=== PATIENT | male | born 1960 | race Caucasian/White ===

== ENCOUNTER 2016-04-06 15:04 | Inpatient (IN) ==
[2016-04-06] MEDS ORDERED: 0.9 % Sodium Chloride 1,000 ML IVC ONE (15:19)
[2016-04-06 15:31] LABS: Bilirubin,Urine Negative (Negative); Blood,Urine Negative (Negative); Clarity,Urine Cloudy (Clear); Color,Urine Yellow (Yellow); Glucose,Urine (UA) Normal (Normal); Ketones,Urine Negative (Negative); Leukocyte Esterase,Urine Negative (Negative); Nitrite,Urine Negative (Negative); Protein,Urine Negative (Neg-Trace); Specific Gravity,Urine 1.026 (1.010-1.025); Urobilinogen,Urine Normal (Normal)
[2016-04-06 15:33] LABS: Bacteria,Urine None Seen per hpf (None-Few); Hyaline Casts,Urine None Seen per lpf (None-Few); RBC,Urine 0-3 per hpf (0-3); Squamous Epithelial Cell,Urine Few per lpf (None-Few); WBC,Urine 0-3 per hpf (0-3)
[2016-04-06 16:01] LABS: Basophils # 0.1 K/mcL (0.0-0.2); Basophils % 0.3 %; Hematocrit 35.7 % (37.5-50.1); Hemoglobin 11.8 g/dL (12.9-16.9); Immature Granulocytes % 0.5 % (0-4); Lymphocytes # 2.6 K/mcL (0.6-4.6); Mean Corpuscular HGB Conc 33.1 g/dL (31.6-35.5); Mean Corpuscular Hemoglobin 29.5 pg (28.0-33.3); Mean Corpuscular Volume 89.3 fL (83.0-100.0); Mean Platelet Volume 12.9 fL (9.4-12.4); Monocytes # 1.1 K/mcL (0.0-1.3); Monocytes % 5.7 %; Neutrophils # 16.1 K/mcL (1.6-8.9); Platelet Count 138 K/mcL (140-400); Red Cell Distribution Width 15.6 % (11.5-14.5); Segmented Neutrophils % 80.5 %
[2016-04-06 16:07] LABS: ABG HCO3 30.1 mEQ/L (21-27); ABG Oxygen Saturation 91 % (95-98); ABG PCO2 36 mmHg (35-45); ABG PH 7.53 pH Units (7.32-7.45); ABG PO2 53 mmHg (85-104); ABG TCO2 31.2 mEq/L (20-26); Blood Gas FiO2 21 %
[2016-04-06 16:10] LABS: INR 1.1; Prothrombin Time 12.1 Seconds (9.4-12.1)
[2016-04-06 16:14] LABS: BUN/Creatinine Ratio 58 (6-26); Blood Urea Nitrogen 48 mg/dL (8-26); Carbon Dioxide 25 mEq/L (19-29); Chloride 106 mEq/L (98-109); Sodium 140 mEq/L (136-145); eGFR For African Americans > 60 (> 60)
[2016-04-06 16:15] LABS: Alanine Aminotransferase 13 Units/L (0-55); Albumin 3.4 g/dL (3.5-5.0); Albumin/Globulin Ratio 1.1 (1.1-2.2); Alkaline Phosphatase 86 Units/L (38-126); Aspartate Amino Transferase 17 Units/L (5-34); Bilirubin,Direct 0.2 mg/dL (0.0-0.5); Bilirubin,Indirect 0.3 mg/dL (0.0-1.2); Bilirubin,Total 0.5 mg/dL (0.2-1.2); Calcium 8.7 mg/dL (8.6-10.8); Globulin 3.1 g/dL (2.4-3.5); Glucose 103 mg/dL (70-99); Magnesium 2.1 mg/dL (1.6-2.6); Osmolality,Calculated 303 (280-300); Phosphorous 3.5 mg/dL (2.3-4.7); Total Protein 6.5 g/dL (6.0-8.3); eGFR For Non-African Americans > 60 (> 60)
--- NOTE | 2016-04-06 17:06 | Emergency Department Note ---
Disposition Clinical Impression: Generalized weakness, Frequent falls, Leukocytosis Laceration of lip Qualifiers: Encounter type: initial encounter Qualified Code(s): S01.511A - Laceration without foreign body of lip, initial encounter Disposition: Admitted As Inpatient [facility] Provider[facility] - Forms: ED Satisfaction Letter Weakness HPI - General Chief complaint: ED Fall Stated complaint: frequent falls Time Seen by Provider: 04/06/16 15:08 Source: patient, EMS Limitations: no limitations Nursing Notes Reviewed: Yes Vital Signs Reviewed: Yes - History of Present Illness HPI Narrative: Is a 55-year-old male who is a [place] [facility] was sent to the [place] for frequent falls last couple days. He states he has had some generalized weakness he fell yesterday unsure the exact time. He states he feels better now he went to the [place] urgent care they diagnosed him with sepsis started IV fluids and antibiotics here at 22,000 white count. Patient has no acute complaints right now he states he is hungry but does feel weak. Onset (ago): day(s) (3) Duration: constant Location: generalized Pain Scale: 0 Improves with: none Worsens with: none Context: trauma/injury Associated symptoms: Denies: chest pain, confusion, dark stools, diaphoresis, nausea/vomiting - Related Data Allergies Allergy/AdvReac Type Severity Reaction Status Date / Time adhesive Allergy See Verified 04/06/16 15:25 Comments perphenazine [From Trilafon] Allergy See Verified 04/06/16 15:25 Comments All systems ED: reviewed and negative except as stated. Constitutional: Reports: weakness. Denies: fever, chills Respiratory: Denies: cough, dyspnea, wheezes Gastrointestinal: Denies: abdominal pain, nausea, vomiting Past Medical History - Past Medical History Source: patient, old records reviewed, nursing notes reviewed Medical history: Reports: hypertension Psychiatric history: Reports: PTSD - Social History Smoking Status: Current every day smoker Smokeless Tobacco Status: No Alcohol use: Reports: none Drug use: Reports: none Physical Exam - General Limitations: no limitations General appearance: alert, in no apparent distress - Head Head exam: atraumatic, normocephalic, normal inspection - Eye Eye exam: Present: normal appearance, PERRL, EOMI - Expanded Eye Exam Pupils: Left: reactive - ENT ENT exam: other (He has a vertical laceration upper lip approximately 7 mm scab formation already.) - Expanded ENT Exam External ear exam: Present: normal external inspection Mouth exam: Present: normal external inspection Teeth exam: Present: normal inspection Throat exam: Present: normal inspection - Neck Neck exam: Present: normal inspection, full ROM, trachea midline - Chest Chest inspection: Present: normal inspection, symmetric chest wall rise - Respiratory Respiratory exam: Present: normal lung sounds bilaterally - Cardiovascular Cardiovascular exam: Present: tachycardia - Abdominal Exam Abdominal exam: Present: soft, Non-Tender. Absent: tenderness, distention, guarding, rebound, rigidity - Extremities Exam Extremities exam: Present: normal inspection, full ROM. Absent: tenderness, pedal edema - Expanded Upper Extremity Exam Shoulder exam: Present: normal inspection, full ROM Arm exam: Present: normal inspection, full ROM Elbow exam: Present: normal inspection, full ROM Forearm/Wrist exam: Present: normal inspection, full ROM Hand exam: Present: normal inspection, full ROM Vascular exam: Normal: capillary refill, radial pulse - Expanded Lower Extremity Exam Hip/Pelvis exam: Present: normal inspection, full ROM Upper leg exam: Present: normal inspection, full ROM Knee exam: Present: normal inspection, full ROM Lower leg exam: Present: normal inspection, full ROM Ankle exam: Present: normal inspection, full ROM Foot/toe exam: Present: normal inspection, full ROM Neurovascular/Tendon exam: Absent: motor deficit, sensory deficit, tendon deficit - Back Exam Back exam: Present: normal inspection, full ROM. Absent: tenderness - Neurological Exam Neurological exam: Present: alert, oriented X3 - Expanded Neurological Exam Patient oriented to: Present: person, place, time Coma Scale Eye Opening: Spontaneous Coma Scale Motor Response: Obeys Commands Coma Scale Verbal Response: Oriented Coma Scale Total: 15 - Psychiatric Psychiatric exam: Present: normal affect, normal mood - Skin Skin exam: Present: warm, dry, intact, normal color Course Vital Signs Temperature 97.7 F 04/06/16 15:12 Pulse Rate 110 04/06/16 15:12 Respiratory Rate 16 04/06/16 15:12 Blood Pressure 105/72 04/06/16 15:12 O2 Sat by Pulse Oximetry 95 04/06/16 15:12 Temperature 97.7 F 04/06/16 15:12 Pulse Rate 108 04/06/16 16:43 Respiratory Rate 16 04/06/16 16:43 Blood Pressure 102/67 04/06/16 16:43 O2 Sat by Pulse Oximetry 98 04/06/16 16:43 Oxygen Delivery Oxygen Delivery Room Air Weakness - Lab Data Result diagrams: 04/06/16 15:52 04/06/16 15:52 Lab Results 04/06/16 04/06/16 04/06/16 Range/Units 15:25 15:52 15:52 WBC 20.0 H (4.3-11.1) K/mcL RBC 4.00 L (4.19-5.50) M/mcL Hgb 11.8 L (12.9-16.9) g/dL Hct 35.7 L (37.5-50.1) % MCV 89.3 (83.0-100.0) fL MCH 29.5 (28.0-33.3) pg MCHC 33.1 (31.6-35.5) g/dL RDW 15.6 H (11.5-14.5) % Plt Count 138 L (140-400) K/mcL MPV 12.9 H (9.4-12.4) fL Immature Gran % 0.5 (0-4) % Seg Neutrophils % 80.5 % Lymphocytes % 13.0 % Monocytes % 5.7 % Eosinophils % 0.0 % Basophils % 0.3 % Neutrophils # 16.1 H (1.6-8.9) K/mcL Lymphocytes # 2.6 (0.6-4.6) K/mcL Monocytes # 1.1 (0.0-1.3) K/mcL Eosinophils # 0.0 (0.0-0.6) K/mcL Basophils # 0.1 (0.0-0.2) K/mcL PT 12.1 (9.4-12.1) Seconds INR 1.1 APTT 24.0 L (26.0-36.0) Seconds ABG pH (7.32-7.45) pH Units ABG pCO2 (35-45) mmHg ABG pO2 (85-104) mmHg ABG HCO3 (21-27) mEQ/L ABG Total CO2 (20-26) mEq/L ABG O2 Saturation (95-98) % ABG Base Excess (-2.0 to 3.0) mEq/L Blood Gas Modality Inspired O2 % Sodium (136-145) mEq/L Potassium (3.5-4.5) mEq/L Chloride (98-109) mEq/L Carbon Dioxide (19-29) mEq/L BUN (8-26) mg/dL Creatinine (0.72-1.25) mg/dL Est GFR ( Amer) (> 60) Est GFR (Non-Af Amer) (> 60) BUN/Creatinine Ratio (6-26) Glucose (70-99) mg/dL Calculated Osmolality (280-300) Lactic Acid (0.5-2.2) mmol/L Calcium (8.6-10.8) mg/dL Phosphorus (2.3-4.7) mg/dL Magnesium (1.6-2.6) mg/dL Total Bilirubin (0.2-1.2) mg/dL Direct Bilirubin (0.0-0.5) mg/dL Indirect Bilirubin (0.0-1.2) mg/dL AST (5-34) Units/L ALT (0-55) Units/L Alkaline Phosphatase (38-126) Units/L Troponin I (0-0.03) ng/mL Serum Total Protein (6.0-8.3) g/dL Albumin (3.5-5.0) g/dL Globulin (2.4-3.5) g/dL Albumin/Globulin Ratio (1.1-2.2) Urine Color Yellow (Yellow) Urine Clarity Cloudy A (Clear) Urine pH 6.0 (5.0-8.0) pH Units Ur Specific Kemp 1.026 H (1.010-1.025) Urine Protein Negative (Neg-Trace) mg/dL Urine Glucose (UA) Normal (Normal) mg/dL Urine Ketones Negative (Negative) mg/dL Urine Blood Negative (Negative) Urine Nitrite Negative (Negative) Urine Bilirubin Negative (Negative) Urine Urobilinogen Normal (Normal) mg/dL Ur Leukocyte Esterase Negative (Negative) Urine Microscopic RBC 0-3 (0-3) per hpf Urine Microscopic WBC 0-3 (0-3) per hpf Ur Squamous Epith Cells Few (None-Few) per lpf Urine Bacteria None Seen (None-Few) per hpf Hyaline Casts None Seen (None-Few) per lpf Ur Culture Indicated? NO (NO) Specimen Rejected 04/06/16 04/06/16 04/06/16 Range/Units 15:52 15:52 15:54 WBC (4.3-11.1) K/mcL RBC (4.19-5.50) M/mcL Hgb (12.9-16.9) g/dL Hct (37.5-50.1) % MCV (83.0-100.0) fL MCH (28.0-33.3) pg MCHC (31.6-35.5) g/dL RDW (11.5-14.5) % Plt Count (140-400) K/mcL MPV (9.4-12.4) fL Immature Gran % (0-4) % Seg Neutrophils % % Lymphocytes % % Monocytes % % Eosinophils % % Basophils % % Neutrophils # (1.6-8.9) K/mcL Lymphocytes # (0.6-4.6) K/mcL Monocytes # (0.0-1.3) K/mcL Eosinophils # (0.0-0.6) K/mcL Basophils # (0.0-0.2) K/mcL PT (9.4-12.1) Seconds INR APTT (26.0-36.0) Seconds ABG pH 7.53 H (7.32-7.45) pH Units ABG pCO2 36 (35-45) mmHg ABG pO2 53 L (85-104) mmHg ABG HCO3 30.1 H (21-27) mEQ/L ABG Total CO2 31.2 H (20-26) mEq/L ABG O2 Saturation 91 L (95-98) % ABG Base Excess 7.0 H (-2.0 to 3.0) mEq/L Blood Gas Modality RA Inspired O2 21 % Sodium 140 (136-145) mEq/L Potassium 4.0 (3.5-4.5) mEq/L Chloride 106 (98-109) mEq/L Carbon Dioxide 25 (19-29) mEq/L BUN 48 H (8-26) mg/dL Creatinine 0.83 (0.72-1.25) mg/dL Est GFR ( Amer) > 60 (> 60) Est GFR (Non-Af Amer) > 60 (> 60) BUN/Creatinine Ratio 58 H (6-26) Glucose 103 H (70-99) mg/dL Calculated Osmolality 303 H (280-300) Lactic Acid (0.5-2.2) mmol/L Calcium 8.7 (8.6-10.8) mg/dL Phosphorus 3.5 (2.3-4.7) mg/dL Magnesium 2.1 (1.6-2.6) mg/dL Total Bilirubin 0.5 (0.2-1.2) mg/dL Direct Bilirubin 0.2 (0.0-0.5) mg/dL Indirect Bilirubin 0.3 (0.0-1.2) mg/dL AST 17 (5-34) Units/L ALT 13 (0-55) Units/L Alkaline Phosphatase 86 (38-126) Units/L Troponin I 0.01 (0-0.03) ng/mL Serum Total Protein 6.5 (6.0-8.3) g/dL Albumin 3.4 L (3.5-5.0) g/dL Globulin 3.1 (2.4-3.5) g/dL Albumin/Globulin Ratio 1.1 (1.1-2.2) Urine Color (Yellow) Urine Clarity (Clear) Urine pH (5.0-8.0) pH Units Ur Specific Kemp (1.010-1.025) Urine Protein (Neg-Trace) mg/dL Urine Glucose (UA) (Normal) mg/dL Urine Ketones (Negative) mg/dL Urine Blood (Negative) Urine Nitrite (Negative) Urine Bilirubin (Negative) Urine Urobilinogen (Normal) mg/dL Ur Leukocyte Esterase (Negative) Urine Microscopic RBC (0-3) per hpf Urine Microscopic WBC (0-3) per hpf Ur Squamous Epith Cells (None-Few) per lpf Urine Bacteria (None-Few) per hpf Hyaline Casts (None-Few) per lpf Ur Culture Indicated? (NO) Specimen Rejected 04/06/16 04/06/16 Range/Units 16:18 16:27 WBC (4.3-11.1) K/mcL RBC (4.19-5.50) M/mcL Hgb (12.9-16.9) g/dL Hct (37.5-50.1) % MCV (83.0-100.0) fL MCH (28.0-33.3) pg MCHC (31.6-35.5) g/dL RDW (11.5-14.5) % Plt Count (140-400) K/mcL MPV (9.4-12.4) fL Immature Gran % (0-4) % Seg Neutrophils % % Lymphocytes % % Monocytes % % Eosinophils % % Basophils % % Neutrophils # (1.6-8.9) K/mcL Lymphocytes # (0.6-4.6) K/mcL Monocytes # (0.0-1.3) K/mcL Eosinophils # (0.0-0.6) K/mcL Basophils # (0.0-0.2) K/mcL PT (9.4-12.1) Seconds INR APTT (26.0-36.0) Seconds ABG pH (7.32-7.45) pH Units ABG pCO2 (35-45) mmHg ABG pO2 (85-104) mmHg ABG HCO3 (21-27) mEQ/L ABG Total CO2 (20-26) mEq/L ABG O2 Saturation (95-98) % ABG Base Excess (-2.0 to 3.0) mEq/L Blood Gas Modality Inspired O2 % Sodium (136-145) mEq/L Potassium (3.5-4.5) mEq/L Chloride (98-109) mEq/L Carbon Dioxide (19-29) mEq/L BUN (8-26) mg/dL Creatinine (0.72-1.25) mg/dL Est GFR ( Amer) (> 60) Est GFR (Non-Af Amer) (> 60) BUN/Creatinine Ratio (6-26) Glucose (70-99) mg/dL Calculated Osmolality (280-300) Lactic Acid 1.3 (0.5-2.2) mmol/L Calcium (8.6-10.8) mg/dL Phosphorus (2.3-4.7) mg/dL Magnesium (1.6-2.6) mg/dL Total Bilirubin (0.2-1.2) mg/dL Direct Bilirubin (0.0-0.5) mg/dL Indirect Bilirubin (0.0-1.2) mg/dL AST (5-34) Units/L ALT (0-55) Units/L Alkaline Phosphatase (38-126) Units/L Troponin I (0-0.03) ng/mL Serum Total Protein (6.0-8.3) g/dL Albumin (3.5-5.0) g/dL Globulin (2.4-3.5) g/dL Albumin/Globulin Ratio (1.1-2.2) Urine Color (Yellow) Urine Clarity (Clear) Urine pH (5.0-8.0) pH Units Ur Specific Kemp (1.010-1.025) Urine Protein (Neg-Trace) mg/dL Urine Glucose (UA) (Normal) mg/dL Urine Ketones (Negative) mg/dL Urine Blood (Negative) Urine Nitrite (Negative) Urine Bilirubin (Negative) Urine Urobilinogen (Normal) mg/dL Ur Leukocyte Esterase (Negative) Urine Microscopic RBC (0-3) per hpf Urine Microscopic WBC (0-3) per hpf Ur Squamous Epith Cells (None-Few) per lpf Urine Bacteria (None-Few) per hpf Hyaline Casts (None-Few) per lpf Ur Culture Indicated? (NO) Specimen Rejected Hemolyzed
[2016-04-06] MEDS ORDERED: Naloxone 0.4 MG/ML INJ IVP PRN (19:11)
[2016-04-06] MEDS ORDERED: 0.9 % Sodium Chloride 1,000 ML IVC SCH (19:15)
--- NOTE | 2016-04-06 20:33 | Internal Med History&Physical ---
<Sharon Linn M - Last Filed: 04/06/16 22:11> Date of Encounter: 04/06/16 Time of Encounter: 20:21 Assessment and Plan (1) Syncope Current visit: Yes Status: Acute Patient reports "blacking out" several times and falling. CT head from [place] negative for acute abnormality. BUN is elevated and patient appears dehydrated. Suspect orthostatic hypotension resulting in syncope, but will evaluate for other possibilities. Orthostatic vital signs continuous buckram sewer echocardiogram bilateral carotid dopplers. Qualifiers: Syncope type: unspecified Qualified Code(s): R55 - Syncope and collapse (2) Tachycardia Current visit: Yes Status: Acute EKG showed Sinus Tachycardia with HR of 108. WBC count elevated to 20.0. Patient is afebrile, but coughing. Tachycardia cause could be related to infection versus dehydration. Patient is clinically dehydrated with dry mucous membranes, BUN of 48. Bolus given in ED. IV fluids 0.9NS at 100 Regular diet Rocephin 1g IVPB daily for suspected URI. (3) Frequent falls Current visit: Yes Status: Acute Patient with multiple recent falls, reporting "blacking out". Working up for syncope. Fall precautions PT consult (4) Dehydration Current visit: Yes Status: Acute Patient clinically dehydrated with BUN of 48, dry mucous membranes. Fluid bolus given in ED. Continuous IV fluids with 0.9NS at 100mL/hr Regular diet. Recheck chemistry in the morning. (5) Chronic obstructive pulmonary disease Current visit: Yes Status: Acute Patient with reported history of COPD. Productive cough. CXR shows no acute cardiopulmonary disease. Satting 95% on room air. No inhalers on home med list. Duoneb treatments QID Qualifiers: COPD type: unspecified COPD Qualified Code(s): J44.9 - Chronic obstructive pulmonary disease, unspecified (6) DVT prophylaxis Current visit: Yes Status: Acute Ambulate with assistance anti-embolic stockings Lovenox 40mg SQ daily Internal Medicine - H&P: HPI Chief complaint: frequent falls Admitted From: Emergency Dept Plans for Post Hospital Care: Home History of present illness: Mr. Taylor is a 55 year old male with HTN, COPD, schizophrenia, and GERD who was sent to the ED from the [place] with reports of frequent falls, as well as elevated WBC count to 22, and [facility]. Patient is a poor historian, but reports he "blacked out" several times in the last few days and fell as a result a few times. He has a scabbed laceration on his left upper lip, reportedly from one of the falls. He reports he has been coughing, but is not sure how long, and does not report coughing anything up. He denies any chest pain, palpitations, headaches, numbness or tingling. [facility] CXR which showed no evidence of acute cardiopulmonary disease. He had a head CT, which showed no acute intracranial abnormality, suspected mild microvascular ischemic change remains present within the supratentorial white matter. Suspected retention cysts are partially visualized within the left maxillary sinus, there is trace mucosal thickening within some of the right anterior ethmoid air cells, the left mastoid air cells remain opacified. Evaluation in the ED revealed WBC count of 20.0, negative troponin of 0.01, lactic acid of 1.3, EKG showed sinus tachycardia. ABG revealed chronic respiratory alkalosis. On exam, he is alert and oriented X 3, answers questions appropriately at times, but is a poor historian and occasionally has inappropriate answers to questions. His lungs are clear to auscultation, his heart has regular, tachycardic rhythm. Past Med Surg Social Fam HX - Past Medical History Medical history: COPD, hypertension Psychiatric history: PTSD, schizophrenia - Past Surgical History Surgical History: other (bladder surgery, tonsillectomy) - Social History Smoking Status: Current every day smoker Smokeless Tobacco Status: No Alcohol use: none Drug use: none - Family History Mother Living Status: Age at : 92 Internal Medicine - H&P: Meds Benztropine Mesylate 1 mg PO BID 04/06/16 [History] CloZAPine [Clozaril] 100 mg PO TID 04/06/16 [History] Haloperidol Decanoate 100 mg IM 04/06/16 [History] Lactulose [Lactulose] BID 04/06/16 [History] Magnesium Citrate PRN 04/06/16 [History] Melatonin [Melatin] 3 mg PO HS 04/06/16 [History] Metoprolol Tartrate 25 mg PO BID 04/06/16 [History] Multivitamin ONCE 04/06/16 [History] Omeprazole 20 mg PO BID 04/06/16 [History] Potassium Chloride [Klor-Con 10] 10 meq PO ONCE 04/06/16 [History] Sennosides/Docusate Sodium [Senna-S Tablet] 1 each PO BID 04/06/16 [History] Allergies adhesive Allergy (Verified 04/06/16 15:25) See Comments perphenazine [From Trilafon] Allergy (Verified 04/06/16 15:25) See Comments All Systems PM: A 10-system review of systems was performed and is negative for pertinent findings except as documented above in the HPI. - Constitutional Constitutional: falls, no chills, no fever(s), no night sweats - EENT Eyes: no change in vision, no discharge, no pain, no photophobia Ears: no ear discharge, no ear pain, no tinnitus Nose, mouth and throat: no dysphagia, no nasal discharge, no neck pain, no sore throat - Cardiovascular Cardiovascular ROS IM: syncope, no chest pain, no diaphoresis, no dyspnea, no lightheadedness, no palpitations - Respiratory Respiratory: cough, no dyspnea, no wheezing, no excessive phlegm production - Gastrointestinal Gastrointestinal: no abdominal pain, no diarrhea, no hematemesis, no hematochezia, no melena, no nausea, no vomiting - Musculoskeletal Musculoskeletal ROS IM: no numbness, no tingling - Integumentary Integumentary IM: no rash, no unusual bruising - Neurological Neurological ROS: no focal weakness, no numbness, no tingling, no tremor(s) - Hematologic/Lymphatic Hematologic/Lymphatic: no easy bruising - Constitutional Vitals: Temp Pulse Resp BP Pulse Ox 97.7 F 108 16 108/74 91 L 04/06/16 19:21 04/06/16 19:21 04/06/16 19:21 04/06/16 19:21 04/06/16 19:21 General appearance: Present: A&O X 3 Exam: poor historian and answers questions inappropriately at times. - Head Head exam: Present: normocephalic Additional comments: scabbed laceration on left upper lip - Eye Eye exam: Present: PERRL, conjuntiva pink, sclera anicteric Pupils: Present: PERRL - Neck Neck exam general surgery: Present: supple, trachea midline. Absent: lymphadenopathy - Respiratory Respiratory exam: Present: CTAB. Absent: accessory muscle use, rales, rhonchi, wheezes - Cardiovascular Cardiovascular exam: Present: RRR, +S1, +S2, tachycardia. Absent: diastolic murmur, gallop, rubs, systolic murmur - GI/Abdominal GI/Abdominal exam: Present: normal bowel sounds, soft, no peritoneal signs. Absent: distended, tenderness - Extremities Exam Extremities exam: Present: warm, radial pulses palpable and symetrical. Absent : calf tenderness, cyanotic, pedal edema - Neurological Exam Neurological exam: Present: CN II-XII intact, oriented X3, no focal deficits. Absent: pronater drift, facial droop, speech deficit - Skin Skin exam: Present: dry, intact Internal Med - H&P Results - Labs CBC & Chem 7: 04/06/16 15:52 04/06/16 15:52 Labs: All Lab Results (24 Hours) 04/06/16 04/06/16 04/06/16 Range/Units 15:25 15:52 15:52 WBC 20.0 H (4.3-11.1) K/mcL RBC 4.00 L (4.19-5.50) M/mcL Hgb 11.8 L (12.9-16.9) g/dL Hct 35.7 L (37.5-50.1) % MCV 89.3 (83.0-100.0) fL MCH 29.5 (28.0-33.3) pg MCHC 33.1 (31.6-35.5) g/dL RDW 15.6 H (11.5-14.5) % Plt Count 138 L (140-400) K/mcL MPV 12.9 H (9.4-12.4) fL Immature Gran % 0.5 (0-4) % Seg Neutrophils % 80.5 % Lymphocytes % 13.0 % Monocytes % 5.7 % Eosinophils % 0.0 % Basophils % 0.3 % Neutrophils # 16.1 H (1.6-8.9) K/mcL Lymphocytes # 2.6 (0.6-4.6) K/mcL Monocytes # 1.1 (0.0-1.3) K/mcL Eosinophils # 0.0 (0.0-0.6) K/mcL Basophils # 0.1 (0.0-0.2) K/mcL PT 12.1 (9.4-12.1) Seconds INR 1.1 APTT 24.0 L (26.0-36.0) Seconds ABG pH (7.32-7.45) pH Units ABG pCO2 (35-45) mmHg ABG pO2 (85-104) mmHg ABG HCO3 (21-27) mEQ/L ABG Total CO2 (20-26) mEq/L ABG O2 Saturation (95-98) % ABG Base Excess (-2.0 to 3.0) mEq/L Blood Gas Modality Inspired O2 % Sodium (136-145) mEq/L Potassium (3.5-4.5) mEq/L Chloride (98-109) mEq/L Carbon Dioxide (19-29) mEq/L BUN (8-26) mg/dL Creatinine (0.72-1.25) mg/dL Est GFR ( Amer) (> 60) Est GFR (Non-Af Amer) (> 60) BUN/Creatinine Ratio (6-26) Glucose (70-99) mg/dL Calculated Osmolality (280-300) Lactic Acid (0.5-2.2) mmol/L Calcium (8.6-10.8) mg/dL Phosphorus (2.3-4.7) mg/dL Magnesium (1.6-2.6) mg/dL Total Bilirubin (0.2-1.2) mg/dL Direct Bilirubin (0.0-0.5) mg/dL Indirect Bilirubin (0.0-1.2) mg/dL AST (5-34) Units/L ALT (0-55) Units/L Alkaline Phosphatase (38-126) Units/L Troponin I (0-0.03) ng/mL Serum Total Protein (6.0-8.3) g/dL Albumin (3.5-5.0) g/dL Globulin (2.4-3.5) g/dL Albumin/Globulin Ratio (1.1-2.2) Urine Color Yellow (Yellow) Urine Clarity Cloudy A (Clear) Urine pH 6.0 (5.0-8.0) pH Units Ur Specific [place] 1.026 H (1.010-1.025) Urine Protein Negative (Neg-Trace) mg/dL Urine Glucose (UA) Normal (Normal) mg/dL Urine Ketones Negative (Negative) mg/dL Urine Blood Negative (Negative) Urine Nitrite Negative (Negative) Urine Bilirubin Negative (Negative) Urine Urobilinogen Normal (Normal) mg/dL Ur Leukocyte Esterase Negative (Negative) Urine Microscopic RBC 0-3 (0-3) per hpf Urine Microscopic WBC 0-3 (0-3) per hpf Ur Squamous Epith Cells Few (None-Few) per lpf Urine Bacteria None Seen (None-Few) per hpf Hyaline Casts None Seen (None-Few) per lpf Ur Culture Indicated? NO (NO) Specimen Rejected 04/06/16 04/06/16 04/06/16 Range/Units 15:52 15:52 15:54 WBC (4.3-11.1) K/mcL RBC (4.19-5.50) M/mcL Hgb (12.9-16.9) g/dL Hct (37.5-50.1) % MCV (83.0-100.0) fL MCH (28.0-33.3) pg MCHC (31.6-35.5) g/dL RDW (11.5-14.5) % Plt Count (140-400) K/mcL MPV (9.4-12.4) fL Immature Gran % (0-4) % Seg Neutrophils % % Lymphocytes % % Monocytes % % Eosinophils % % Basophils % % Neutrophils # (1.6-8.9) K/mcL Lymphocytes # (0.6-4.6) K/mcL Monocytes # (0.0-1.3) K/mcL Eosinophils # (0.0-0.6) K/mcL Basophils # (0.0-0.2) K/mcL PT (9.4-12.1) Seconds INR APTT (26.0-36.0) Seconds ABG pH 7.53 H (7.32-7.45) pH Units ABG pCO2 36 (35-45) mmHg ABG pO2 53 L (85-104) mmHg ABG HCO3 30.1 H (21-27) mEQ/L ABG Total CO2 31.2 H (20-26) mEq/L ABG O2 Saturation 91 L (95-98) % ABG Base Excess 7.0 H (-2.0 to 3.0) mEq/L Blood Gas Modality RA Inspired O2 21 % Sodium 140 (136-145) mEq/L Potassium 4.0 (3.5-4.5) mEq/L Chloride 106 (98-109) mEq/L Carbon Dioxide 25 (19-29) mEq/L BUN 48 H (8-26) mg/dL Creatinine 0.83 (0.72-1.25) mg/dL Est GFR ( Amer) > 60 (> 60) Est GFR (Non-Af Amer) > 60 (> 60) BUN/Creatinine Ratio 58 H (6-26) Glucose 103 H (70-99) mg/dL Calculated Osmolality 303 H (280-300) Lactic Acid (0.5-2.2) mmol/L Calcium 8.7 (8.6-10.8) mg/dL Phosphorus 3.5 (2.3-4.7) mg/dL Magnesium 2.1 (1.6-2.6) mg/dL Total Bilirubin 0.5 (0.2-1.2) mg/dL Direct Bilirubin 0.2 (0.0-0.5) mg/dL Indirect Bilirubin 0.3 (0.0-1.2) mg/dL AST 17 (5-34) Units/L ALT 13 (0-55) Units/L Alkaline Phosphatase 86 (38-126) Units/L Troponin I 0.01 (0-0.03) ng/mL Serum Total Protein 6.5 (6.0-8.3) g/dL Albumin 3.4 L (3.5-5.0) g/dL Globulin 3.1 (2.4-3.5) g/dL Albumin/Globulin Ratio 1.1 (1.1-2.2) Urine Color (Yellow) Urine Clarity (Clear) Urine pH (5.0-8.0) pH Units Ur Specific [place] (1.010-1.025) Urine Protein (Neg-Trace) mg/dL Urine Glucose (UA) (Normal) mg/dL Urine Ketones (Negative) mg/dL Urine Blood (Negative) Urine Nitrite (Negative) Urine Bilirubin (Negative) Urine Urobilinogen (Normal) mg/dL Ur Leukocyte Esterase (Negative) Urine Microscopic RBC (0-3) per hpf Urine Microscopic WBC (0-3) per hpf Ur Squamous Epith Cells (None-Few) per lpf Urine Bacteria (None-Few) per hpf Hyaline Casts (None-Few) per lpf Ur Culture Indicated? (NO) Specimen Rejected 04/06/16 04/06/16 04/06/16 Range/Units 16:18 16:27 18:14 WBC (4.3-11.1) K/mcL RBC (4.19-5.50) M/mcL Hgb (12.9-16.9) g/dL Hct (37.5-50.1) % MCV (83.0-100.0) fL MCH (28.0-33.3) pg MCHC (31.6-35.5) g/dL RDW (11.5-14.5) % Plt Count (140-400) K/mcL MPV (9.4-12.4) fL Immature Gran % (0-4) % Seg Neutrophils % % Lymphocytes % % Monocytes % % Eosinophils % % Basophils % % Neutrophils # (1.6-8.9) K/mcL Lymphocytes # (0.6-4.6) K/mcL Monocytes # (0.0-1.3) K/mcL Eosinophils # (0.0-0.6) K/mcL Basophils # (0.0-0.2) K/mcL PT (9.4-12.1) Seconds INR APTT (26.0-36.0) Seconds ABG pH (7.32-7.45) pH Units ABG pCO2 (35-45) mmHg ABG pO2 (85-104) mmHg ABG HCO3 (21-27) mEQ/L ABG Total CO2 (20-26) mEq/L ABG O2 Saturation (95-98) % ABG Base Excess (-2.0 to 3.0) mEq/L Blood Gas Modality Inspired O2 % Sodium (136-145) mEq/L Potassium (3.5-4.5) mEq/L Chloride (98-109) mEq/L Carbon Dioxide (19-29) mEq/L BUN (8-26) mg/dL Creatinine (0.72-1.25) mg/dL Est GFR ( Amer) (> 60) Est GFR (Non-Af Amer) (> 60) BUN/Creatinine Ratio (6-26) Glucose (70-99) mg/dL Calculated Osmolality (280-300) Lactic Acid 1.3 1.4 (0.5-2.2) mmol/L Calcium (8.6-10.8) mg/dL Phosphorus (2.3-4.7) mg/dL Magnesium (1.6-2.6) mg/dL Total Bilirubin (0.2-1.2) mg/dL Direct Bilirubin (0.0-0.5) mg/dL Indirect Bilirubin (0.0-1.2) mg/dL AST (5-34) Units/L ALT (0-55) Units/L Alkaline Phosphatase (38-126) Units/L Troponin I (0-0.03) ng/mL Serum Total Protein (6.0-8.3) g/dL Albumin (3.5-5.0) g/dL Globulin (2.4-3.5) g/dL Albumin/Globulin Ratio (1.1-2.2) Urine Color (Yellow) Urine Clarity (Clear) Urine pH (5.0-8.0) pH Units Ur Specific [place] (1.010-1.025) Urine Protein (Neg-Trace) mg/dL Urine Glucose (UA) (Normal) mg/dL Urine Ketones (Negative) mg/dL Urine Blood (Negative) Urine Nitrite (Negative) Urine Bilirubin (Negative) Urine Urobilinogen (Normal) mg/dL Ur Leukocyte Esterase (Negative) Urine Microscopic RBC (0-3) per hpf Urine Microscopic WBC (0-3) per hpf Ur Squamous Epith Cells (None-Few) per lpf Urine Bacteria (None-Few) per hpf Hyaline Casts (None-Few) per lpf Ur Culture Indicated? (NO) Specimen Rejected Hemolyzed <Ruslan Simpson R - Last Filed: 04/07/16 01:31> Date of Encounter: 04/06/16 Internal Medicine - H&P: HPI History of present illness: Mr. Taylor is a 55 year old male All Systems PM: A 10-system review of systems was performed and is negative for pertinent findings except as documented above in the HPI. - Constitutional Vitals: Temp Pulse Resp BP Pulse Ox 98.2 F 81 16 92/59 96 04/06/16 22:40 04/06/16 22:40 04/06/16 22:40 04/06/16 22:40 04/06/16 22:40 Internal Med - H&P Results - Labs CBC & Chem 7: 04/06/16 15:52 04/06/16 15:52 - Attending Attestation I examined this patient and my medical decision-making was reviewed with the [facility] TECHNICIAN/PA/Advanced Practice Nurse/Resident Physician. I agree with the documented findings, disposition and treatment plan as described except to the extent set forth below. 55 year old male with HTN, COPD, schizophrenia, and GERD who was sent to the ED from the [place] with reports of frequent falls and was noted to have WBC count of 22. Review of the [place] records shows a CXR which showed no evidence of acute cardiopulmonary disease. CT head reported no acute intracranial abnormality, suspected mild microvascular ischemic change remains present within the supratentorial white matter. Suspected retention cysts are partially visualized within the left maxillary sinus, there is trace mucosal thickening within some of the right anterior ethmoid air cells, the left mastoid air cells remain opacified. He was empirically given ceftriaxone in the [place] hospital. In the emergency department he was noted to have WBC of 20. Tachycardic with heart rate in the low 100s. No obvious source of infection identified. Lactate is negative. O/E: Alert and oriented. Lungs clear to auscultation. EKG sinus tachycardia. A/P: Volume depletion: Possibly due to poor oral intake. BUN is significantly elevated. Will treat with IV fluids.Sinus tachycardia is possibly related to volume depletion. Syncope: Due to Orthostatic hypotension versus cardiogenic. Check orthostatic vitals. Treat with IV fluids. Will obtain echo. Telemetry. Leucocytosis: No apparent source for infection at this time. Could be stress response. Steroids are not listed in his home meds. Monitor WBC count.
[2016-04-06] MEDS: Melatonin 3 MG TABLET PO SCH (22:20)
[2016-04-06] MEDS: cloZAPine 100 MG TABLET PO SCH (22:20)
[2016-04-06] MEDS: Sennosides/Docusate Sodium TABLET PO SCH (22:20)
[2016-04-06] MEDS: Ipratropium/Albuterol Neb 3 ML IH SCH (22:40)
--- NOTE | 2016-04-07 01:37 | Event Note ---
Date of Encounter: 04/07/16 Time of Encounter: 00:10 I was paged that the pt had heart rate in the 150s to 160s. He seemed to have atrial flutter/fibrillation with HR of 140-150 on the telemetry. Pt felt some fluttering in the chest. When we obtain the EKG immediately, he was in sinus tachycardia. A/P: Paroxysmal A flutter / A fib: will check TSH. continue IV fluids. Echocardiogram. Consider cardiology consultation.
[2016-04-07] MEDS: 0.9 % Sodium Chloride 1,000 ML IVC SCH ×3 (02:14→15:26)
[2016-04-07] MEDS: Ipratropium/Albuterol Neb 3 ML IH SCH ×4 (03:15→22:40)
[2016-04-07 05:10] LABS: Basophils # 0.1 K/mcL (0.0-0.2); Basophils % 0.3 %; Hematocrit 28.3 % (37.5-50.1); Immature Granulocytes % 0.4 % (0-4); Lymphocytes # 3.1 K/mcL (0.6-4.6); Lymphocytes % 18.4 %; Mean Corpuscular HGB Conc 32.9 g/dL (31.6-35.5); Mean Corpuscular Hemoglobin 29.7 pg (28.0-33.3); Mean Corpuscular Volume 90.4 fL (83.0-100.0); Mean Platelet Volume 12.6 fL (9.4-12.4); Monocytes # 1.2 K/mcL (0.0-1.3); Monocytes % 7.2 %; Neutrophils # 12.6 K/mcL (1.6-8.9); Platelet Count 125 K/mcL (140-400); Red Blood Count 3.13 M/mcL (4.19-5.50); Red Cell Distribution Width 15.6 % (11.5-14.5); Segmented Neutrophils % 73.7 %
[2016-04-07 05:16] LABS: Hemoglobin 9.3 g/dL (12.9-16.9)
[2016-04-07 05:25] LABS: BUN/Creatinine Ratio 51 (6-26); Calcium 7.7 mg/dL (8.6-10.8); Carbon Dioxide 27 mEq/L (19-29); Chloride 111 mEq/L (98-109); Glucose 107 mg/dL (70-99); Osmolality,Calculated 302 (280-300); Sodium 142 mEq/L (136-145); eGFR For African Americans > 60 (> 60); eGFR For Non-African Americans > 60 (> 60)
[2016-04-07 05:29] LABS: Blood Urea Nitrogen 34 mg/dL (8-26)
[2016-04-07] MEDS: *HR* Enoxaparin 40 MG/0.4 ML SYRINGE SQ SCH (06:02)
[2016-04-07] MEDS: Sennosides/Docusate Sodium TABLET PO SCH ×2 (08:48→21:45)
[2016-04-07] MEDS: cloZAPine 100 MG TABLET PO SCH ×3 (09:16→21:45)
--- NOTE | 2016-04-07 10:23 | Event Note ---
Date of Encounter: 04/07/16 Time of Encounter: 10:21 - Cardiology Event Note Telemetry and EKGs reviewed with Dr. Vasques. Cardiology was consulted for A-Fib. On review of telemetry overnight and EKGs that are available, there is no evidence of A-Fib. Appears to be sinus tach with ectopy and occasional episodes of Atrial tach. Discussed with hospitalist, will cancel consult, but please reconsult if necessary.
--- NOTE | 2016-04-07 15:37 | Internal Med Progress Note ---
Date of Encounter: 04/07/16 Time of Encounter: 09:00 - Assessment and plan (1) Syncope Current Visit: Yes Status: Acute Assessment and plan: Etiology is undetermined. Patient has signs of dehydration. Suspect hypovolemic and orthostatic hypotension. Will follow echo, duplex carotid. Place patient on closely cardiac monitoring. Qualifiers: Syncope type: vasovagal syncope Qualified Code(s): R55 - Syncope and collapse (2) Chronic obstructive pulmonary disease Current Visit: Yes Status: Acute Assessment and plan: Stable continue home medication Qualifiers: COPD type: unspecified COPD Qualified Code(s): J44.9 - Chronic obstructive pulmonary disease, unspecified (3) DVT prophylaxis Current Visit: Yes Status: Acute Assessment and plan: Lovenox SC (4) Dehydration Current Visit: Yes Status: Acute Assessment and plan: Continue IV fluid, follow-up chemistry. (5) Frequent falls Current Visit: Yes Status: Acute Assessment and plan: Will check a vitamin B12 and folic acid level. Physical therapy. (6) Leukocytosis Current Visit: Yes Status: Acute Assessment and plan: Possibly reactive. Continue hydration and Follow-up CBC Qualifiers: Leukocytosis type: unspecified Qualified Code(s): D72.829 - Elevated white blood cell count, unspecified (7) Tachycardia Current Visit: Yes Status: Acute Assessment and plan: Patient has transient SVT reviewed by cardiology. Possibly due to hypovolemic status. Will continue hydration patient and closely monitor him. - Time Spent With Patient 25 - 35 minutes - Subjective Interval history: Patient is a 55-year-old male admitted for syncope. His past medical history is significant for hypertension, COPD, schizophrenia. I saw and examined the patient. He is awake, alert, however he cannot communicate appropriately. No fever, vitals are stable, patient denies dizziness or lightheaded. Will continue IV fluid to hydrate patient, follow-up syncope workup results. Keep the patient in telemetry and put him on cardiac monitoring. - Constitutional Vitals: Temp Pulse Resp BP Pulse Ox 98.0 F 94 16 98/63 97 04/07/16 14:40 04/07/16 14:40 04/07/16 14:40 04/07/16 14:40 04/07/16 14:40 General appearance: Present: A&O X 2, A&O X 3, no acute distress - Head Head exam: Present: atraumatic, normocephalic - Eye Eye exam: Present: PERRL, conjuntiva pink, sclera anicteric Pupils: Present: PERRL - Neck Neck exam general surgery: Present: supple, trachea midline. Absent: lymphadenopathy - Respiratory Respiratory exam: Present: CTAB. Absent: accessory muscle use, rales, rhonchi, wheezes - Cardiovascular Cardiovascular exam: Present: RRR, +S1, +S2. Absent: diastolic murmur, gallop, rubs, systolic murmur - GI/Abdominal GI/Abdominal exam: Present: normal bowel sounds, soft, no peritoneal signs. Absent: distended, tenderness - Extremities Exam Extremities exam: Present: warm, radial pulses palpable and symetrical. Absent : calf tenderness, cyanotic, pedal edema - Neurological Exam Neurological exam: Present: CN II-XII intact, oriented X3, no focal deficits. Absent: pronater drift, facial droop, speech deficit - Skin Skin exam: Present: dry, intact Internal Medicine: Result - Labs CBC & Chem 7: 04/07/16 04:34 04/07/16 04:34 Labs: Short CBC 04/07/16 Range/Units 04:34 WBC 17.0 H (4.3-11.1) K/mcL Hgb 9.3 L D (12.9-16.9) g/dL Hct 28.3 L (37.5-50.1) % Plt Count 125 L (140-400) K/mcL Neutrophils # 12.6 H (1.6-8.9) K/mcL BMP 04/07/16 04:34 Sodium 142 Potassium 4.0 Chloride 111 H Carbon Dioxide 27 BUN 34 H D Creatinine 0.67 L Glucose 107 H Calcium 7.7 L Cardiac Enzymes 04/07/16 Range/Units 04:34 Troponin I 0.01 (0-0.03) ng/mL - ABG Interpretation ABG results: ABG ABG pH 7.53 pH Units (7.32-7.45) H 04/06/16 15:54 ABG pCO2 36 mmHg (35-45) 04/06/16 15:54 ABG pO2 53 mmHg (85-104) L 04/06/16 15:54 ABG O2 Saturation 91 % (95-98) L 04/06/16 15:54 PT/INR, D-dimer PT 12.1 Seconds (9.4-12.1) 04/06/16 15:52 Consult Discharge Plan - Plan [facility]Primary Care Provider[facility] -
--- NOTE | 2016-04-07 15:40 | ECHO - Doppler Report ---
Echocardiogram Name: Kyler Taylor Date of Study: 04/07/2016 Date: 1960 Ht: 72.0 in Medical Record#: [id number] Age: 55 Wt: 154.0 lb Gender: Male BSA: 1.91 Order #: [id number] Location: [facility] Room #: [facility] Reading Physician: David Maldonado DO, FACTyler, NANO, BHUPINDER Tram Operator: Cassy Mike, [place], RVT Ordering Physician: Sharon Linn CNP Primary Physician: [facility] Indications: Syncope Impressions: Technically sub-optimal due to poor echocardiographic windows. LVEF 65%. Normal LV chamber size, wall thickness and function. Mild left ventricular diastolic dysfunction. Normal right ventricular structure and function. Unable to estimate RVSP due to lack of TR jet. No obvious significant valvular dysfunction. Left Ventricular Wall Motion: Rest Echo Findings All wall segments showed normal motion. Findings: Study Quality * Technically sub-optimal due to poor echocardiographic windows. ECG Findings * Normal sinus rhythm. Left Ventricle * LVEF 65%. * Normal LV chamber size, wall thickness and function. * Mild left ventricular diastolic dysfunction. Right Ventricle * Normal right ventricular structure and function. Left Atrium * Mildly dilated left atrium. Right Atrium * Normal right atrial size. Interatrial Septum * Lipomatous interatrial septum. * No evidence of PFO by color Doppler. Aortic Valve * Aortic valve not well visualized. * No aortic regurgitation. * No aortic stenosis. Mitral Valve * Normal mitral valve structure and function. * No mitral regurgitation. * No mitral stenosis. Tricuspid Valve * Normal tricuspid valve structure and function. * No tricuspid regurgitation. * Unable to estimate RVSP due to lack of TR jet. Pulmonic Valve * Pulmonic valve not well visualized. * No pulmonic regurgitation. Aorta * Normally sized aortic root. Pericardium * The pericardium appears normal. IVC * Normal IVC dimensions and inspiratory collapse. Pulmonary Artery * Normal visualized portions of the main pulmonary artery. History Hypertension Measurements: BP: 107/ 45 2D Normal Values RVIDd: 3.00 cm <2.7 cm IVSd: .90 cm 0.6 - 1.0 cm LVIDd: 5.10 cm 3.7 - 5.6 cm LVPWd: .90 cm 0.6 - 1.1 cm LVIDs: 3.00 cm 1.5 - 3.6 cm AO: 2.40 cm < 4.0 cm %FS: 41.20 cm >25 % LA volume: 65 Mitral Valve Peak E:.52 m/sec Peak A:.60 m/sec E/A Ratio:0.9 Peak E' Lat Fred:5.26 cm/s Peak E' Med Fred:8.48 cm/s E/E' Lat Ratio:9.8 E/E' Med Ratio:6.1 Updated by David Maldonado DO, GOMEZ, BHUPINDER MCGILL on 04/07/2016 3:36:35 PM electronically signed on 04/07/2016 3:36:50 PM with status of Final Wall Motion Reyes: 1=Normal, 2=Hypokinesis, 3=Akinesis, 4=Dyskinesis, 5=Aneurysmal, 6=Hyperkinetic, X=Not Visualized (Blank)=Missing
[2016-04-07 16:34] LABS: Alanine Aminotransferase 10 Units/L (0-55); Alkaline Phosphatase 68 Units/L (38-126); Aspartate Amino Transferase 15 Units/L (5-34); BUN/Creatinine Ratio 32 (6-26); Bilirubin,Total 0.3 mg/dL (0.2-1.2); Calcium 8.3 mg/dL (8.6-10.8); Carbon Dioxide 29 mEq/L (19-29); Chloride 107 mEq/L (98-109); Globulin 2.6 g/dL (2.4-3.5); Glucose 101 mg/dL (70-99); Osmolality,Calculated 297 (280-300); Potassium 3.8 mEq/L (3.5-4.5); Sodium 142 mEq/L (136-145); Total Protein 5.3 g/dL (6.0-8.3); eGFR For African Americans > 60 (> 60); eGFR For Non-African Americans > 60 (> 60)
[2016-04-07 16:37] LABS: Albumin 2.7 g/dL (3.5-5.0); Blood Urea Nitrogen 21 mg/dL (8-26)
--- NOTE | 2016-04-07 19:39 | Electrocardiograph Report ---
[place] [address] Test Date: 2016-04-06 Pat Name: Kyler Taylor Department: 103 Room: 3B Gender: M Pupil Personnel Services Director: : 1960 Requested By: Yovani Cortes Order Number: [id number] Reading MD: David Maldonado DO Measurements Intervals [place] Rate: 108 P: 71 NV: 160 QRS: 68 QRSD: 96 T: 75 QT: 323 QTc: 387 Interpretive Statements SINUS TACHYCARDIA INCOMPLETE RIGHT BUNDLE BRANCH BLOCK NONSPECIFIC T-WAVE ABNORMALITY Electronically Signed On 04-07-2016 19:37:45 EST by David Maldonado DO
--- NOTE | 2016-04-07 19:46 | Electrocardiograph Report ---
[address] [address] Test Date: 2016-04-07 Pat Name: Kyler Taylor Department: 113 Room: 3B Gender: M Regulatory Internship: : 1960 Requested By: Josy Mcgrath Order Number: [id number] Reading MD: David Maldonado DO Measurements Intervals [place] Rate: 106 P: 78 WV: 169 QRS: 79 QRSD: 93 T: 90 QT: 330 QTc: 392 Interpretive Statements SINUS TACHYCARDIA WITH OCCASIONAL SUPRAVENTRICULAR PREMATURE COMPLEXES POSSIBLE LEFT ATRIAL ENLARGEMENT INCOMPLETE RIGHT BUNDLE BRANCH BLOCK NONSPECIFIC T-WAVE ABNORMALITY Electronically Signed On 04-07-2016 19:44:10 EST by David Maldonado DO
[2016-04-07] MEDS: Melatonin 3 MG TABLET PO SCH (21:45)
[2016-04-08] MEDS ORDERED: 0.9 % Sodium Chloride 1,000 ML ONE (00:24)
[2016-04-08] MEDS: Ipratropium/Albuterol Neb 3 ML IH SCH ×4 (03:18→22:09)
[2016-04-08] MEDS ORDERED: 0.9 % Sodium Chloride 500 ML IVC ONE (03:37)
[2016-04-08 05:17] LABS: Basophils % 0.4 %; Immature Granulocytes % 0.3 % (0-4)
[2016-04-08 05:19] LABS: Hematocrit 24.8 % (37.5-50.1); Hemoglobin 7.9 g/dL (12.9-16.9); Immature Platelets 8.8 % (1.1-6.1); Lymphocytes # 2.4 K/mcL (0.6-4.6); Mean Corpuscular HGB Conc 31.9 g/dL (31.6-35.5); Mean Corpuscular Hemoglobin 29.4 pg (28.0-33.3); Mean Corpuscular Volume 92.2 fL (83.0-100.0); Mean Platelet Volume 12.4 fL (9.4-12.4); Monocytes # 0.6 K/mcL (0.0-1.3); Monocytes % 8.7 %; Platelet Count 100 K/mcL (140-400); Red Blood Count 2.69 M/mcL (4.19-5.50); Red Cell Distribution Width 15.5 % (11.5-14.5); Segmented Neutrophils % 56.6 %
[2016-04-08] MEDS: *HR* Enoxaparin 40 MG/0.4 ML SYRINGE SQ SCH (05:21)
[2016-04-08] MEDS: 0.9 % Sodium Chloride 1,000 ML IVC SCH ×2 (05:23→19:59)
[2016-04-08 06:01] LABS: BUN/Creatinine Ratio 29 (6-26); Blood Urea Nitrogen 16 mg/dL (8-26); Calcium 8.1 mg/dL (8.6-10.8); Carbon Dioxide 28 mEq/L (19-29); Chloride 110 mEq/L (98-109); Glucose 98 mg/dL (70-99); Magnesium 1.8 mg/dL (1.6-2.6); Osmolality,Calculated 291 (280-300); Potassium 3.9 mEq/L (3.5-4.5); Sodium 140 mEq/L (136-145); eGFR For African Americans > 60 (> 60); eGFR For Non-African Americans > 60 (> 60)
[2016-04-08 06:38] LABS: Folate 14.6 ng/mL (7.0-31.4)
[2016-04-08] MEDS: cloZAPine 100 MG TABLET PO SCH ×3 (09:42→20:01)
[2016-04-08] MEDS: Sennosides/Docusate Sodium TABLET PO SCH ×2 (09:42→20:00)
[2016-04-08 10:52] LABS: % Iron Saturation 11 % (20-55); Iron 28 mcg/dL (65-175); Transferrin 184 mg/dL (174-364)
[2016-04-08 11:13] LABS: Ferritin 43 ng/ml (22-275)
--- NOTE | 2016-04-08 16:43 | Carotid Imaging Report ---
Carotid Duplex Patient Name:Kyler Taylor Order Number:[id number] Procedure Date:04/07/2016 Date:9Age:55 yrs Gender:Male Lt BP:94 / 68 mmHg Rt.BP:95 / 62 mmHgHeart Rate: Location:[facility] Room #: Manager Pulmonary:Cassy iMke, RDCS, RVT Referring MD:Sharon Linn [employer] support team assoc:[facility] Reading MD:Jey Rodriguez MD Primary Indications:Syncope Risk Factors Yes/No Hypertension Yes Hypercholesterolemia No Diabetes No Impressions: The bilateral carotid arteries are normal throughout. Recommendations: After imaging the patient returned to their room. Findings Carotid Duplex: Right: The right eca has turbulent flow without plaque. There is antegrade spectral Doppler flow patterns in the right vertebral artery. Left: There is nonstenotic plaque in the left eca. There is smooth homogeneous plaque. There is antegrade spectral Doppler flow patterns in the left vertebral artery. Prior Study: No prior study available for comparison. Carotid Results Right PSV EDV Assessment Proximal CCA 140 26 Normal Mid CCA 143 31 Normal Distal CCA 136 26 Normal Bifurcation 140 27 Normal Proximal ICA 97 22 Normal Mid ICA 117 34 Normal Distal ICA 72 26 Normal ECA 192 24 Turbulent Flow Vertebral Artery 91 31 Antegrade Flow Left PSV EDV Assessment Proximal CCA 152 33 Normal Mid CCA 131 27 Normal Distal CCA 139 30 Normal Bifurcation 140 34 Normal Proximal ICA 139 44 Normal Mid ICA 113 44 Normal Distal ICA 113 41 Normal ECA 93 18 Non Stenotic Plaque Vertebral Artery 84 31 Antegrade Flow Ratio's Right ICA/CCA Ratio: 0.82 ICA/CCA Values: 117/143 Left ICA/CCA Ratio: 1.06 ICA/CCA Values: 139/131 Updated by Jey Rodriguez MD on 04/08/2016 4:37:43 PM electronically signed on 04/08/2016 4:38:19 PM with status of Final
--- NOTE | 2016-04-08 18:02 | Internal Med Progress Note ---
Date of Encounter: 04/08/16 Time of Encounter: 10:00 - Assessment and plan (1) Syncope Current Visit: Yes Status: Acute Assessment and plan: Etiology is undetermined. Patient has signs of dehydration. Suspect hypovolemic and orthostatic hypotension. Echo, duplex carotid result unremarkable.. Place patient on closely cardiac monitoring. Qualifiers: Syncope type: vasovagal syncope Qualified Code(s): R55 - Syncope and collapse (2) Chronic obstructive pulmonary disease Current Visit: Yes Status: Acute Assessment and plan: Stable continue home medication Qualifiers: COPD type: unspecified COPD Qualified Code(s): J44.9 - Chronic obstructive pulmonary disease, unspecified (3) DVT prophylaxis Current Visit: Yes Status: Acute Assessment and plan: Lovenox SC (4) Dehydration Current Visit: Yes Status: Acute Assessment and plan: Continue IV fluid, follow-up chemistry. (5) Frequent falls Current Visit: Yes Status: Acute Assessment and plan: Will check a vitamin B12 and folic acid level. Physical therapy. (6) Leukocytosis Current Visit: Yes Status: Acute Assessment and plan: Possibly reactive. Continue hydration and Follow-up CBC. White count is normal now Qualifiers: Leukocytosis type: unspecified Qualified Code(s): D72.829 - Elevated white blood cell count, unspecified (7) Tachycardia Current Visit: Yes Status: Acute Assessment and plan: Patient has transient SVT reviewed by cardiology. Possibly due to hypovolemic status. Will continue hydration patient and closely monitor him. Continue beta kirill (8) Pneumonia Current Visit: Yes Status: Acute Assessment and plan: Consider community-acquired pneumonia versus aspiration pneumonia. Place patient on Levaquin. Swallow evaluation. Qualifiers: Pneumonia type: due to Pneumococcus Laterality: right Lung location: lower lobe of lung Qualified Code(s): J13 - Pneumonia due to Streptococcus pneumoniae (9) Iron deficiency anemia Current Visit: Yes Status: Acute Assessment and plan: Place Iron supplement Qualifiers: Iron deficiency anemia type: inadequate dietary iron intake Qualified Code( s): D50.8 - Other iron deficiency anemias - Time Spent With Patient 25 - 35 minutes - Subjective Interval history: Patient is a 55-year-old male admitted for syncope. His past medical history is significant for hypertension, COPD, schizophrenia. I saw and examined the patient. He is more awake, alert, oriented 3, communicated with me well. No fever, vitals are stable, patient denies dizziness or lightheaded. Will continue IV fluid to hydrate patient, follow-up syncope workup results. Keep the patient in telemetry and put him on cardiac monitoring. Patient has a hemoglobin drop, which is possibly dilutional. Patient said that he has bowel movement yesterday, color is brown, denies black stool. No signs of active bleeding. Patient has an anemia, anemia workup shows iron deficiency, we will start Iron pills. Chest x-ray shows pneumonia. Patient has minimal symptoms. We will start Levaquin treatment. - Constitutional Vitals: Temp Pulse Resp BP Pulse Ox 98.2 F 77 17 112/76 95 04/08/16 15:36 04/08/16 15:36 04/08/16 15:36 04/08/16 15:36 04/08/16 15:36 General appearance: Present: A&O X 3, no acute distress - Head Head exam: Present: atraumatic, normocephalic - Eye Eye exam: Present: PERRL, conjuntiva pink, sclera anicteric Pupils: Present: PERRL - Neck Neck exam general surgery: Present: supple, trachea midline. Absent: lymphadenopathy - Respiratory Respiratory exam: Present: CTAB. Absent: accessory muscle use, rales, rhonchi, wheezes - Cardiovascular Cardiovascular exam: Present: RRR, +S1, +S2. Absent: diastolic murmur, gallop, rubs, systolic murmur - GI/Abdominal GI/Abdominal exam: Present: normal bowel sounds, soft, no peritoneal signs. Absent: distended, tenderness - Extremities Exam Extremities exam: Present: warm, radial pulses palpable and symetrical. Absent : calf tenderness, cyanotic, pedal edema - Neurological Exam Neurological exam: Present: CN II-XII intact, oriented X3, no focal deficits. Absent: pronater drift, facial droop, speech deficit - Skin Skin exam: Present: dry, intact Internal Medicine: Result - Labs CBC & Chem 7: 04/08/16 04:56 04/08/16 04:56 Labs: Short CBC 04/08/16 Range/Units 04:56 WBC 7.1 D (4.3-11.1) K/mcL Hgb 7.9 L (12.9-16.9) g/dL Hct 24.8 L (37.5-50.1) % Plt Count 100 L (140-400) K/mcL Neutrophils # 4.0 (1.6-8.9) K/mcL BMP 04/08/16 04:56 Sodium 140 Potassium 3.9 Chloride 110 H Carbon Dioxide 28 BUN 16 Creatinine 0.56 L Glucose 98 Calcium 8.1 L - ABG Interpretation ABG results: ABG ABG pH 7.53 pH Units (7.32-7.45) H 04/06/16 15:54 ABG pCO2 36 mmHg (35-45) 04/06/16 15:54 ABG pO2 53 mmHg (85-104) L 04/06/16 15:54 ABG O2 Saturation 91 % (95-98) L 04/06/16 15:54 PT/INR, D-dimer PT 12.1 Seconds (9.4-12.1) 04/06/16 15:52 - Impressions Impressions Chest X-Ray 04/08/16 00:12 IMPRESSION: Right base opacity with pleural effusion, most compatible with pneumonia. D/ / 04/08/2016 07:11:53 Shona Gutierrez MD / angela Interpreting Provider: Shona Gutierrez MD Consult Discharge Plan - Plan [facility]errals: [facility] [Primary Care Provider] -
[2016-04-08] MEDS: Levofloxacin 750 MG/150 ML 750 MG/150 ML BAG IVPB SCH (19:58)
[2016-04-08] MEDS: Lactulose Oral Soln 20 GM/30 ML UDC PO SCH (20:00)
[2016-04-08] MEDS: Melatonin 3 MG TABLET PO SCH (20:01)
[2016-04-09] MEDS: Ipratropium/Albuterol Neb 3 ML IH SCH ×4 (03:42→21:36)
[2016-04-09 05:22] LABS: Basophils % 0.3 %; Hematocrit 25.1 % (37.5-50.1); Hemoglobin 8.1 g/dL (12.9-16.9); Immature Granulocytes % 0.4 % (0-4); Lymphocytes # 2.5 K/mcL (0.6-4.6); Lymphocytes % 34.7 %; Mean Corpuscular HGB Conc 32.3 g/dL (31.6-35.5); Mean Corpuscular Hemoglobin 29.8 pg (28.0-33.3); Mean Corpuscular Volume 92.3 fL (83.0-100.0); Mean Platelet Volume 13.3 fL (9.4-12.4); Monocytes # 0.6 K/mcL (0.0-1.3); Monocytes % 7.8 %; Neutrophils # 4.1 K/mcL (1.6-8.9); Platelet Count 119 K/mcL (140-400); Red Blood Count 2.72 M/mcL (4.19-5.50); Red Cell Distribution Width 15.3 % (11.5-14.5); Segmented Neutrophils % 56.8 %
[2016-04-09 05:31] LABS: BUN/Creatinine Ratio 11 (6-26); Blood Urea Nitrogen 7 mg/dL (8-26); Calcium 8.3 mg/dL (8.6-10.8); Carbon Dioxide 25 mEq/L (19-29); Chloride 109 mEq/L (98-109); Glucose 97 mg/dL (70-99); Osmolality,Calculated 290 (280-300); Potassium 3.6 mEq/L (3.5-4.5); Sodium 141 mEq/L (136-145); eGFR For African Americans > 60 (> 60); eGFR For Non-African Americans > 60 (> 60)
[2016-04-09] MEDS: 0.9 % Sodium Chloride 1,000 ML IVC SCH (06:12)
[2016-04-09] MEDS: *HR* Enoxaparin 40 MG/0.4 ML SYRINGE SQ SCH (06:12)
[2016-04-09] MEDS: Levofloxacin 750 MG/150 ML 750 MG/150 ML BAG IVPB SCH (08:34)
[2016-04-09] MEDS: cloZAPine 100 MG TABLET PO SCH ×4 (08:35→20:01)
[2016-04-09] MEDS: Lactulose Oral Soln 20 GM/30 ML UDC PO SCH ×3 (08:35→20:03)
[2016-04-09] MEDS: Sennosides/Docusate Sodium TABLET PO SCH ×2 (08:35→20:03)
--- NOTE | 2016-04-09 17:04 | Internal Med Progress Note ---
Date of Encounter: 04/09/16 Time of Encounter: 10:00 - Assessment and plan (1) Syncope Current Visit: Yes Status: Acute Assessment and plan: Etiology is undetermined. Patient has signs of dehydration. Suspect hypovolemic and orthostatic hypotension. Echo, duplex carotid result unremarkable.. Place patient on closely cardiac monitoring. Qualifiers: Syncope type: vasovagal syncope Qualified Code(s): R55 - Syncope and collapse (2) Chronic obstructive pulmonary disease Current Visit: Yes Status: Acute Assessment and plan: Stable continue home medication Qualifiers: COPD type: unspecified COPD Qualified Code(s): J44.9 - Chronic obstructive pulmonary disease, unspecified (3) DVT prophylaxis Current Visit: Yes Status: Acute Assessment and plan: Lovenox SC (4) Dehydration Current Visit: Yes Status: Acute Assessment and plan: Improved, DC IV fluid. Patient has good intake. follow-up chemistry. (5) Frequent falls Current Visit: Yes Status: Acute Assessment and plan: Will check a vitamin B12 and folic acid level. Physical therapy. (6) Leukocytosis Current Visit: Yes Status: Acute Assessment and plan: Possibly reactive. Continue hydration and Follow-up CBC. White count is normal now Qualifiers: Leukocytosis type: unspecified Qualified Code(s): D72.829 - Elevated white blood cell count, unspecified (7) Tachycardia Current Visit: Yes Status: Acute Assessment and plan: Patient has transient SVT reviewed by cardiology. Possibly due to hypovolemic status. Will continue hydration patient and closely monitor him. Continue beta kirill (8) Pneumonia Current Visit: Yes Status: Acute Assessment and plan: Consider community-acquired pneumonia versus aspiration pneumonia. Place patient on Levaquin. Swallow evaluation shows normal swallow function. Qualifiers: Pneumonia type: due to Pneumococcus Laterality: right Lung location: lower lobe of lung Qualified Code(s): J13 - Pneumonia due to Streptococcus pneumoniae (9) Iron deficiency anemia Current Visit: Yes Status: Acute Assessment and plan: Patient has a hemoglobin drop. No signs of active bleeding. He has severe dehydration initially, hemoglobin drop after rehydration considering dilutional. His hemoglobin level is stable but at low side afterwards. Iron study shows iron deficiency. Place Iron supplement Qualifiers: Iron deficiency anemia type: inadequate dietary iron intake Qualified Code( s): D50.8 - Other iron deficiency anemias - Time Spent With Patient 25 - 35 minutes - Subjective Interval history: Patient is a 55-year-old male admitted for syncope. His past medical history is significant for hypertension, COPD, schizophrenia. I saw and examined the patient. He is awake, alert, oriented 3, communicated with me well. Much better than the beginning. Walking around along the hallway. No fever, vitals are stable, patient denies dizziness or lightheaded. Has a mild cough without sputum. Echo and duplex carotid result are unremarkable. We will continue Levaquin for pneumonia. Discharge plan. - Constitutional Vitals: Temp Pulse Resp BP Pulse Ox 99.2 F 71 16 119/79 100 04/09/16 15:19 04/09/16 15:19 04/09/16 15:19 04/09/16 15:19 04/09/16 15:19 General appearance: Present: A&O X 3, no acute distress - Head Head exam: Present: atraumatic, normocephalic - Eye Eye exam: Present: PERRL, conjuntiva pink, sclera anicteric Pupils: Present: PERRL - Neck Neck exam general surgery: Present: supple, trachea midline. Absent: lymphadenopathy - Respiratory Respiratory exam: Present: CTAB. Absent: accessory muscle use, rales, rhonchi, wheezes - Cardiovascular Cardiovascular exam: Present: RRR, +S1, +S2. Absent: diastolic murmur, gallop, rubs, systolic murmur - GI/Abdominal GI/Abdominal exam: Present: normal bowel sounds, soft, no peritoneal signs. Absent: distended, tenderness - Extremities Exam Extremities exam: Present: warm, radial pulses palpable and symetrical. Absent : calf tenderness, cyanotic, pedal edema - Neurological Exam Neurological exam: Present: CN II-XII intact, oriented X3, no focal deficits. Absent: pronater drift, facial droop, speech deficit - Skin Skin exam: Present: dry, intact Internal Medicine: Result - Labs CBC & Chem 7: 04/09/16 04:24 04/09/16 04:24 Labs: Short CBC 04/09/16 Range/Units 04:24 WBC 7.3 (4.3-11.1) K/mcL Hgb 8.1 L (12.9-16.9) g/dL Hct 25.1 L (37.5-50.1) % Plt Count 119 L (140-400) K/mcL Neutrophils # 4.1 (1.6-8.9) K/mcL BMP 04/09/16 04:24 Sodium 141 Potassium 3.6 Chloride 109 Carbon Dioxide 25 BUN 7 L Creatinine 0.62 L Glucose 97 Calcium 8.3 L - ABG Interpretation ABG results: ABG ABG pH 7.53 pH Units (7.32-7.45) H 04/06/16 15:54 ABG pCO2 36 mmHg (35-45) 04/06/16 15:54 ABG pO2 53 mmHg (85-104) L 04/06/16 15:54 ABG O2 Saturation 91 % (95-98) L 04/06/16 15:54 PT/INR, D-dimer PT 12.1 Seconds (9.4-12.1) 04/06/16 15:52 - Impressions Impressions Chest X-Ray 04/08/16 00:12 IMPRESSION: Right base opacity with pleural effusion, most compatible with pneumonia. D/ / 04/08/2016 07:11:53 [facility] MD [facility] Interpreting Provider: Shona Gutierrez MD Consult Discharge Plan - Plan [facility]errals: [facility] [Primary Care Provider] -
[2016-04-09] MEDS: Melatonin 3 MG TABLET PO SCH (20:02)
[2016-04-09] MEDS: Psyllium 1 PACKET POWD.PACK PO SCH (20:03)
[2016-04-10] MEDS: Ipratropium/Albuterol Neb 3 ML IH SCH ×4 (03:28→21:41)
[2016-04-10] MEDS: *HR* Enoxaparin 40 MG/0.4 ML SYRINGE SQ SCH (05:07)
[2016-04-10 05:10] LABS: Basophils % 0.2 %; Hematocrit 25.8 % (37.5-50.1); Hemoglobin 8.4 g/dL (12.9-16.9); Immature Granulocytes % 0.4 % (0-4); Lymphocytes % 24.3 %; Mean Corpuscular HGB Conc 32.6 g/dL (31.6-35.5); Mean Corpuscular Hemoglobin 29.9 pg (28.0-33.3); Mean Corpuscular Volume 91.8 fL (83.0-100.0); Mean Platelet Volume 13.3 fL (9.4-12.4); Monocytes # 0.7 K/mcL (0.0-1.3); Monocytes % 8.8 %; Neutrophils # 5.3 K/mcL (1.6-8.9); Platelet Count 134 K/mcL (140-400); Red Blood Count 2.81 M/mcL (4.19-5.50); Red Cell Distribution Width 15.2 % (11.5-14.5); Segmented Neutrophils % 66.3 %
[2016-04-10 05:28] LABS: BUN/Creatinine Ratio 17 (6-26); Blood Urea Nitrogen 11 mg/dL (8-26); Calcium 8.6 mg/dL (8.6-10.8); Carbon Dioxide 28 mEq/L (19-29); Chloride 107 mEq/L (98-109); Glucose 110 mg/dL (70-99); Osmolality,Calculated 292 (280-300); Potassium 3.8 mEq/L (3.5-4.5); Sodium 141 mEq/L (136-145); eGFR For African Americans > 60 (> 60); eGFR For Non-African Americans > 60 (> 60)
[2016-04-10] MEDS: Levofloxacin 750 MG/150 ML 750 MG/150 ML BAG IVPB SCH (08:33)
[2016-04-10] MEDS: Lactulose Oral Soln 20 GM/30 ML UDC PO SCH ×3 (08:33→20:50)
[2016-04-10] MEDS: Psyllium 1 PACKET POWD.PACK PO SCH ×2 (08:34→20:44)
[2016-04-10] MEDS: cloZAPine 100 MG TABLET PO SCH ×4 (08:34→20:46)
[2016-04-10] MEDS: Sennosides/Docusate Sodium TABLET PO SCH ×2 (08:34→20:46)
[2016-04-10] MEDS: Multivit/Ca/Min/Fe/FA 1 TAB TABLET PO SCH (08:34)
--- NOTE | 2016-04-10 18:08 | Internal Med Progress Note ---
Date of Encounter: 04/10/16 Time of Encounter: 10:00 - Assessment and plan (1) Syncope Current Visit: Yes Status: Acute Assessment and plan: Etiology is undetermined. Patient has signs of dehydration. Suspect hypovolemic and orthostatic hypotension. Echo, duplex carotid result unremarkable.. Place patient on closely cardiac monitoring. Qualifiers: Syncope type: vasovagal syncope Qualified Code(s): R55 - Syncope and collapse (2) Chronic obstructive pulmonary disease Current Visit: Yes Status: Acute Assessment and plan: Stable continue home medication Qualifiers: COPD type: unspecified COPD Qualified Code(s): J44.9 - Chronic obstructive pulmonary disease, unspecified (3) DVT prophylaxis Current Visit: Yes Status: Acute Assessment and plan: Lovenox SC (4) Dehydration Current Visit: Yes Status: Acute Assessment and plan: Improved, DC IV fluid. Patient has good intake. follow-up chemistry. (5) Frequent falls Current Visit: Yes Status: Acute Assessment and plan: Will check a vitamin B12 and folic acid level. Physical therapy. (6) Leukocytosis Current Visit: Yes Status: Acute Assessment and plan: Possibly reactive. Continue hydration and Follow-up CBC. White count is normal now Qualifiers: Leukocytosis type: unspecified Qualified Code(s): D72.829 - Elevated white blood cell count, unspecified (7) Tachycardia Current Visit: Yes Status: Acute Assessment and plan: Patient has transient SVT reviewed by cardiology. Possibly due to hypovolemic status. Will continue hydration patient and closely monitor him. Continue beta kirill (8) Pneumonia Current Visit: Yes Status: Acute Assessment and plan: Consider community-acquired pneumonia versus aspiration pneumonia. Place patient on Levaquin. Swallow evaluation shows normal swallow function. Qualifiers: Pneumonia type: due to Pneumococcus Laterality: right Lung location: lower lobe of lung Qualified Code(s): J13 - Pneumonia due to Streptococcus pneumoniae (9) Iron deficiency anemia Current Visit: Yes Status: Acute Assessment and plan: Patient has a hemoglobin drop. No signs of active bleeding. He has severe dehydration initially, hemoglobin drop after rehydration considering dilutional. His hemoglobin level is stable but at low side afterwards. Iron study shows iron deficiency. Place Iron supplement Qualifiers: Iron deficiency anemia type: inadequate dietary iron intake Qualified Code( s): D50.8 - Other iron deficiency anemias - Subjective Interval history: Patient is a 55-year-old male admitted for syncope. His past medical history is significant for hypertension, COPD, schizophrenia. I saw and examined the patient. He is awake, alert, oriented 3, communicated with me well. Pt has worsen cough and mild SOB. No fever, vitals are stable, patient denies dizziness or lightheaded. We will continue Levaquin for pneumonia. Hopefully d/c tomorrow. - Constitutional Vitals: Temp Pulse Resp BP Pulse Ox 97.9 F 77 16 119/65 92 L 04/10/16 15:03 04/10/16 15:03 04/10/16 15:03 04/10/16 15:03 04/10/16 15:03 General appearance: Present: A&O X 3, no acute distress - Head Head exam: Present: atraumatic, normocephalic - Eye Eye exam: Present: PERRL, conjuntiva pink, sclera anicteric Pupils: Present: PERRL - Neck Neck exam general surgery: Present: supple, trachea midline. Absent: lymphadenopathy - Respiratory Respiratory exam: Present: CTAB, rhonchi (B/L, Rt > Lt). Absent: accessory muscle use, rales, wheezes - Cardiovascular Cardiovascular exam: Present: RRR, +S1, +S2. Absent: diastolic murmur, gallop, rubs, systolic murmur - GI/Abdominal GI/Abdominal exam: Present: normal bowel sounds, soft, no peritoneal signs. Absent: distended, tenderness - Extremities Exam Extremities exam: Present: warm, radial pulses palpable and symetrical. Absent : calf tenderness, cyanotic, pedal edema - Neurological Exam Neurological exam: Present: CN II-XII intact, oriented X3, no focal deficits. Absent: pronater drift, facial droop, speech deficit - Skin Skin exam: Present: dry, intact Internal Medicine: Result - Labs CBC & Chem 7: 04/10/16 04:49 04/10/16 04:49 Labs: Short CBC 04/10/16 Range/Units 04:49 WBC 8.0 (4.3-11.1) K/mcL Hgb 8.4 L (12.9-16.9) g/dL Hct 25.8 L (37.5-50.1) % Plt Count 134 L (140-400) K/mcL Neutrophils # 5.3 (1.6-8.9) K/mcL BMP 04/10/16 04:49 Sodium 141 Potassium 3.8 Chloride 107 Carbon Dioxide 28 BUN 11 Creatinine 0.65 L Glucose 110 H Calcium 8.6 - ABG Interpretation ABG results: ABG ABG pH 7.53 pH Units (7.32-7.45) H 04/06/16 15:54 ABG pCO2 36 mmHg (35-45) 04/06/16 15:54 ABG pO2 53 mmHg (85-104) L 04/06/16 15:54 ABG O2 Saturation 91 % (95-98) L 04/06/16 15:54 PT/INR, D-dimer PT 12.1 Seconds (9.4-12.1) 04/06/16 15:52 Consult Discharge Plan - Plan [facility]errals: [facility] [Primary Care Provider] -
[2016-04-10] MEDS: Melatonin 3 MG TABLET PO SCH (20:46)
[2016-04-11] MEDS: Ipratropium/Albuterol Neb 3 ML IH SCH ×2 (03:30→10:16)
[2016-04-11] MEDS: *HR* Enoxaparin 40 MG/0.4 ML SYRINGE SQ SCH (06:16)
[2016-04-11] MEDS: Lactulose Oral Soln 20 GM/30 ML UDC PO SCH (09:12)
[2016-04-11] MEDS: Levofloxacin 750 MG/150 ML 750 MG/150 ML BAG IVPB SCH (09:12)
[2016-04-11] MEDS: cloZAPine 100 MG TABLET PO SCH (09:13)
[2016-04-11] MEDS: Sennosides/Docusate Sodium TABLET PO SCH (09:13)
[2016-04-11] MEDS: Multivit/Ca/Min/Fe/FA 1 TAB TABLET PO SCH (09:13)
[2016-04-11] MEDS: Psyllium 1 PACKET POWD.PACK PO SCH (09:14)
--- NOTE | 2016-04-11 11:21 | Discharge Summary ---
Date of Encounter: 04/11/16 Time of Encounter: 11:00 - Discharge Diagnosis (1) Syncope Priority: Primary Status: Acute Qualifiers: Syncope type: vasovagal syncope Qualified Code(s): R55 - Syncope and collapse (2) Chronic obstructive pulmonary disease Priority: Secondary Status: Acute Qualifiers: COPD type: unspecified COPD Qualified Code(s): J44.9 - Chronic obstructive pulmonary disease, unspecified (3) DVT prophylaxis Priority: Secondary Status: Acute (4) Dehydration Priority: Primary Status: Acute (5) Frequent falls Priority: Primary Status: Acute (6) Leukocytosis Priority: Primary Status: Acute Qualifiers: Leukocytosis type: unspecified Qualified Code(s): D72.829 - Elevated white blood cell count, unspecified (7) Tachycardia Priority: Primary Status: Acute (8) Pneumonia Priority: Primary Status: Acute Qualifiers: Pneumonia type: due to Pneumococcus Laterality: right Lung location: lower lobe of lung Qualified Code(s): J13 - Pneumonia due to Streptococcus pneumoniae (9) Iron deficiency anemia Priority: Primary Status: Acute Qualifiers: Iron deficiency anemia type: inadequate dietary iron intake Qualified Code( s): D50.8 - Other iron deficiency anemias - Discharge Medications Prescriptions: GuaiFENesin/Dextromethorphan [Robitussin/Dm] 10 ml PO Q6HR 14 Days Ipratropium/Albuterol Neb [Duoneb] 3 ml IH [id number] #30 inhsol Ferrous Sulfate 325 mg PO DAILY@0800 #30 tablet Levofloxacin [Levaquin] 750 mg PO DAILY #7 tablet Home Medications: Benztropine Mesylate 1 mg PO BID 04/06/16 [History] CloZAPine [Clozaril] 100 mg PO TID 04/06/16 [History] Haloperidol Decanoate 150 mg IM Q21D 04/06/16 [History] Lactulose 30 ml PO BID PRN 04/06/16 [History] Melatonin [Melatin] 3 mg PO HS 04/06/16 [History] Metoprolol [Lopressor] 12.5 mg PO BID 04/06/16 [History] Multivitamin [One Daily Multivitamin] 1 each PO DAILY 04/06/16 [History] Omeprazole 40 mg PO BID 04/06/16 [History] Potassium Chloride [Klor-Con 10] 10 meq PO DAILY 04/06/16 [History] Sennosides/Docusate Sodium [Senna-S Tablet] 1 each PO BID 04/06/16 [History] CloZAPine [Clozaril] 500 mg PO HS 04/08/16 [History] Psyllium [Metamucil Fiber Singles Packet] 30 ml PO BID 04/08/16 [History] Simvastatin [Zocor] 40 mg PO HS 04/08/16 [History] Ferrous Sulfate 325 mg PO DAILY@0800 #30 tablet 04/11/16 [Rx] GuaiFENesin/Dextromethorphan [Robitussin/Dm] 10 ml PO Q6HR 14 Days 04/11/16 [Rx] Ipratropium/Albuterol Neb [Duoneb] 3 ml IH [id number] #30 inhsol 04/11/16 [Rx] Levofloxacin [Levaquin] 750 mg PO DAILY #7 tablet 04/11/16 [Rx] Allergies/Adverse Reactions: Allergies adhesive Allergy (Verified 04/06/16 15:25) See Comments perphenazine [From Trilafon] Allergy (Verified 04/06/16 15:25) See Comments - Notes to Outpatient Provider 1. Pt has pneumonia, please continue Levaquin for another 7 days. He has hx of COPD, sometimes has wheezes, please continue duoneb treatment. 2. Pt has iron deficiency, iron pill added to home med. Date of admission: 04/06/16 19:11 [facility] Consults: 04/06/16 21:19 Consult to Physical Therapy [CONS] Routine Comment: Evaluate, develop and implement POC Consult to Menagerie Superintendent [CONS] Routine Reason for SW Consult: [place] patient living in halfway. 04/08/16 18:12 Consult to Speech Therapy [CONS] Routine Comment: Evaluate, develop and implement POC Reason for Consult: Swallow evaluation. Call Completed: No Discharging clinician: Josy Mcgrath Anticipated date of discharge: 04/11/16 - Patient Status Disposition: Transfer SNF Condition: Good Functional capacity at discharge: independent ambulation Overall status at discharge: patient is progressing back to baseline - Discharge Instructions [facility] With: [facility] [Primary Care Provider[facility] - - Diet and Activity Activity: increase activity as tolerated Diet: low fat, low cholesterol, low salt diet Interval History: Mr. Taylor is a 55 year old male with HTN, COPD, schizophrenia, and GERD who was sent [place] the [place] from [place] with reports of frequent falls, as well as elevated WBC count to 22, and tachycardia found at the [facility]. Patient is a poor historian, but reports he "blacked out" several times in the last few days and fell as a result a few times. He has a scabbed laceration on his left upper lip, reportedly from one of the falls. He reports he has been coughing, but is not sure how long, and does not report coughing anything up. He denies any chest pain, palpitations, headaches, numbness or tingling. [facility] shows a CXR which showed no evidence of acute cardiopulmonary disease. He had a head CT, which showed no acute intracranial abnormality, suspected mild microvascular ischemic change remains present within the supratentorial white matter. Suspected retention cysts are partially visualized within the left maxillary sinus, there is trace mucosal thickening within some of the right anterior ethmoid air cells, the left mastoid air cells remain opacified. Evaluation in the ED revealed WBC count of 20.0, negative troponin of 0.01, lactic acid of 1.3, EKG showed sinus tachycardia. ABG revealed chronic respiratory alkalosis. On exam, he is alert and oriented X 3, answers questions appropriately at times, but is a poor historian and occasionally has inappropriate answers to questions. His lungs are clear to auscultation, his heart has regular, tachycardic rhythm. Hospital course: Mr. Taylor is a 55 year old male was admitted for syncope, fall and AMS. He was found dehydrated and tachycardia. He was treated IVF and his mental status has improved and tachycardia has resolved. He was placed on cardiac monitoring, Echo and duplex carotid done, results unremarkable. Pt has cough and has CXR shows pneumonia, pt was placed on levaquin and duoneb nebulizer (hx of COPD). Swallow evaluation shows pt tolerate regular diet. Pt has iron deficiency anemia , iron pills ordered. After treatment, pt's condition significantly improved. PT /OT recommend ECF discharge, will d/c pt to ECF today on po abx for continuous treatment. I saw and examined pt today. He is AAO x 3, no SOB, in no acute distress. Vitals stable, SpO2 95% in RA. Lungs are clear. Pt is stable to discharge to ECF for further PT/OT and treatment. - Time Spent with Patient Total time spent providing and/or coordinating discharge services: 40 minutes Greater than 30 minutes - Constitutional Vitals: Temp Pulse Resp BP Pulse Ox 98.0 F 79 24 101/66 95 04/11/16 09:05 04/11/16 09:05 04/11/16 09:05 04/11/16 09:05 04/11/16 09:05 General appearance: Present: A&O X 3, no acute distress, answers questions appropriately - Head Head exam: Present: atraumatic, normocephalic - Eye Eye exam: Present: PERRL, conjuntiva pink, sclera anicteric Pupils: Present: PERRL - Neck Neck exam general surgery: Present: supple, trachea midline. Absent: lymphadenopathy - Respiratory Respiratory exam: Present: CTAB. Absent: accessory muscle use, rales, rhonchi, wheezes - Cardiovascular Cardiovascular exam: Present: RRR, +S1, +S2. Absent: diastolic murmur, gallop, rubs, systolic murmur - GI/Abdominal GI/Abdominal exam: Present: normal bowel sounds, soft, no peritoneal signs. Absent: distended, tenderness - Extremities Exam Extremities exam: Present: warm, radial pulses palpable and symetrical. Absent : calf tenderness, cyanotic, pedal edema - Neurological Exam Neurological exam: Present: CN II-XII intact, oriented X3, no focal deficits. Absent: pronater drift, facial droop, speech deficit - Skin Skin exam: Present: dry, intact
--- NOTE | 2016-04-11 11:40 | Physician Discharge Referral ---
ExtendedCare Referral Info Transfer To: [facility] Provider in Charge after Transfer: Other - Diagnosis (1) Syncope Status: Acute (2) Chronic obstructive pulmonary disease Status: Acute (3) DVT prophylaxis Status: Acute (4) Dehydration Status: Acute (5) Frequent falls Status: Acute (6) Leukocytosis Status: Acute (7) Tachycardia Status: Acute (8) Pneumonia Status: Acute (9) Iron deficiency anemia Status: Acute - Transfer Medications Prescriptions: GuaiFENesin/Dextromethorphan [Robitussin/Dm] 10 ml PO Q6HR 14 Days Ipratropium/Albuterol Neb [Duoneb] 3 ml IH [id number] #30 inhsol Ferrous Sulfate 325 mg PO DAILY@0800 #30 tablet Levofloxacin [Levaquin] 750 mg PO DAILY #7 tablet Home Medications: Benztropine Mesylate 1 mg PO BID 04/06/16 [History] CloZAPine [Clozaril] 100 mg PO TID 04/06/16 [History] Haloperidol Decanoate 150 mg IM Q21D 04/06/16 [History] Lactulose 30 ml PO BID PRN 04/06/16 [History] Melatonin [Melatin] 3 mg PO HS 04/06/16 [History] Metoprolol [Lopressor] 12.5 mg PO BID 04/06/16 [History] Multivitamin [One Daily Multivitamin] 1 each PO DAILY 04/06/16 [History] Omeprazole 40 mg PO BID 04/06/16 [History] Potassium Chloride [Klor-Con 10] 10 meq PO DAILY 04/06/16 [History] Sennosides/Docusate Sodium [Senna-S Tablet] 1 each PO BID 04/06/16 [History] CloZAPine [Clozaril] 500 mg PO HS 04/08/16 [History] Psyllium [Metamucil Fiber Singles Packet] 30 ml PO BID 04/08/16 [History] Simvastatin [Zocor] 40 mg PO HS 04/08/16 [History] Ferrous Sulfate 325 mg PO DAILY@0800 #30 tablet 04/11/16 [Rx] GuaiFENesin/Dextromethorphan [Robitussin/Dm] 10 ml PO Q6HR 14 Days 04/11/16 [Rx] Ipratropium/Albuterol Neb [Duoneb] 3 ml IH [id number] #30 inhsol 04/11/16 [Rx] Levofloxacin [Levaquin] 750 mg PO DAILY #7 tablet 04/11/16 [Rx] Allergies/Adverse Reactions: Allergies adhesive Allergy (Verified 04/06/16 15:25) See Comments perphenazine [From Trilafon] Allergy (Verified 04/06/16 15:25) See Comments - Respiratory Orders Smoking Cessation: Smoking cessation has been advised. For more information, call the [place] Tobacco Quit Line at 3-652-RTYM-NOW. - Advance Directives Code Status: Full Code - Mobility Orders Ambulate - Rehabiliation Orders Rehab Potential: Good Rehab Orders: Evaluation for Physical Therapy, Evaluation for Occupational Therapy - Diet Orders Cardiac CERTIFICATION: I certify that the transfer of the above named patient to an Extended Care Facility is necessary for the continuing treatment of the diagnosis listed. The above information is true and accurate reflection of patient's current condition. Confidential - Redisclosure prohibited without a patient's written consent.
[2016-04-11 13:08] VITALS: BP 102/67
[2016-04-12] MEDS ORDERED: levoFLOXacin 750 MG TABLET PO SCH (09:00)
== END 2016-04-11 14:07 | DRG 190 ==
LOC: EMEROO 15:04 → 3BNU 15:04 → SUATTDRO 19:11
PROVIDERS: ADMIT Nurse Practitioner Family; ATTEND Internal Medicine

== ENCOUNTER 2021-04-05 13:08 | Inpatient (IN) ==
[2021-04-05] MEDS ORDERED: 0.9 % Sodium Chloride 1,000 ML IVC ONE (13:49)
[2021-04-05 14:20] LABS: Basophils % 0.2 %; Mean Platelet Volume 13.4 fL (9.4-12.4); Platelet Count 105 K/mcL (140-400)
[2021-04-05 14:22] LABS: Hematocrit 44.9 % (37.5-50.1); Hemoglobin 14.1 g/dL (12.9-16.9); Immature Granulocytes % 0.3 % (0-4); Immature Platelets 21.4 % (1.1-6.1); Lymphocytes # 0.7 K/mcL (0.6-4.6); Lymphocytes % 7.1 %; Mean Corpuscular HGB Conc 31.4 g/dL (31.6-35.5); Mean Corpuscular Hemoglobin 29.1 pg (28.0-33.3); Mean Corpuscular Volume 92.8 fL (83.0-100.0); Monocytes # 1.1 K/mcL (0.0-1.3); Monocytes % 11.7 %; Neutrophils # 7.7 K/mcL (1.6-8.9); Red Blood Count 4.84 M/mcL (4.19-5.50); Red Cell Distribution Width 15.2 % (11.5-14.5); Segmented Neutrophils % 80.7 %; White Blood Count 9.5 K/mcL (4.3-11.1)
[2021-04-05 14:37] LABS: Bilirubin,Urine Negative (Negative); Blood,Urine Negative (Negative); Clarity,Urine Clear (Clear); Color,Urine Colorless (Yellow); Glucose,Urine (UA) Normal (Normal); Ketones,Urine Negative (Negative); Leukocyte Esterase,Urine Negative (Negative); Nitrite,Urine Negative (Negative); Protein,Urine Negative (Neg-Trace); Specific Gravity,Urine < 1.005 (1.010-1.025); Urobilinogen,Urine Normal (Normal)
[2021-04-05 14:38] LABS: Alanine Aminotransferase 16 Units/L (7-52); Albumin 4.2 g/dL (3.5-5.7); Albumin/Globulin Ratio 1.5 (1.1-2.2); Alkaline Phosphatase 101 Units/L (34-104); Aspartate Amino Transferase 17 Units/L (13-39); BUN/Creatinine Ratio 9 (6-26); Bilirubin,Total 0.4 mg/dL (0.3-1.0); Blood Urea Nitrogen 5 mg/dL (8-23); Calcium 9.6 mg/dL (8.6-10.3); Carbon Dioxide 39 mEq/L (23-29); Chloride 97 mEq/L (98-107); Creatine Kinase 108 Units/L (30-223); Globulin 2.8 g/dL (2.4-3.5); Glucose 95 mg/dL (70-105); Osmolality,Calculated 281 (280-300); Sodium 137 mEq/L (136-145); Troponin I < 0.03 ng/mL (< 0.04); eGFR For African Americans > 60 (> 60); eGFR For Non-African Americans > 60 (> 60)
[2021-04-05] MEDS ORDERED: Perflutren Lipid Microsphere 1.3 ML in 0.9 % Sodium Chloride 8.7 ML IVP PRN (16:42)
[2021-04-05] MEDS ORDERED: Isovue-370 500 ML BOTTLE IVP ONE (16:42)
[2021-04-05] MEDS ORDERED: Acetaminophen 325 MG TABLET PO PRN (16:47)
[2021-04-05] MEDS ORDERED: Naloxone 0.4 MG/ML INJ IVP PRN (16:47)
[2021-04-05 17:30] LABS: Folate 16.9 ng/mL (3.0-16.0)
[2021-04-05 17:59] LABS: INR 0.9
[2021-04-05] MEDS: Melatonin 3 MG TABLET PO SCH (20:32)
[2021-04-05] MEDS: Sennosides/Docusate Sodium TABLET PO SCH (20:32)
[2021-04-05] MEDS: cloZAPine 100 MG TABLET PO SCH (20:32)
[2021-04-06] MEDS: Ipratropium 1 PUFF INHALER IH SCH ×3 (00:53→15:44)
[2021-04-06 05:23] LABS: Amphetamine Screen,Urine Negative ng/mL (Cutoff=1000); Barbiturate Screen,Urine Negative ng/mL (Cutoff=200); Benzodiazepines Screen,Urine Negative ng/mL (Cutoff=200); Cannabinoid Screen,Urine Negative ng/mL (Cutoff = 50); Cocaine Screen,Urine Negative ng/mL (Cutoff= 300); Opiate Screen,Urine Negative ng/mL (Cutoff=300); Phencyclidine Screen,Urine Negative ng/mL (Cutoff=25)
[2021-04-06 07:46] LABS: Alanine Aminotransferase 15 Units/L (7-52); Albumin 3.8 g/dL (3.5-5.7); Albumin/Globulin Ratio 1.5 (1.1-2.2); Alkaline Phosphatase 96 Units/L (34-104); Aspartate Amino Transferase 17 Units/L (13-39); BUN/Creatinine Ratio 15 (6-26); Bilirubin,Total 0.5 mg/dL (0.3-1.0); Blood Urea Nitrogen 9 mg/dL (8-23); Calcium 9.3 mg/dL (8.6-10.3); Carbon Dioxide 36 mEq/L (23-29); Chloride 99 mEq/L (98-107); Globulin 2.6 g/dL (2.4-3.5); Glucose 103 mg/dL (70-105); Osmolality,Calculated 283 (280-300); Potassium 4.3 mEq/L (3.5-5.1); Sodium 137 mEq/L (136-145); Total Protein 6.4 g/dL (6.4-8.9); eGFR For African Americans > 60 (> 60); eGFR For Non-African Americans > 60 (> 60)
[2021-04-06 07:57] LABS: Basophils % 0.2 %; Hematocrit 42.1 % (37.5-50.1); Immature Granulocytes % 0.2 % (0-4); Immature Platelets 18.2 % (1.1-6.1); Lymphocytes # 0.8 K/mcL (0.6-4.6); Lymphocytes % 9.6 %; Mean Corpuscular HGB Conc 30.9 g/dL (31.6-35.5); Mean Corpuscular Hemoglobin 28.4 pg (28.0-33.3); Mean Corpuscular Volume 92.1 fL (83.0-100.0); Mean Platelet Volume 13.2 fL (9.4-12.4); Monocytes # 0.9 K/mcL (0.0-1.3); Monocytes % 10.1 %; Neutrophils # 6.9 K/mcL (1.6-8.9); Platelet Count 100 K/mcL (140-400); Red Blood Count 4.57 M/mcL (4.19-5.50); Red Cell Distribution Width 15.3 % (11.5-14.5); Segmented Neutrophils % 79.9 %; White Blood Count 8.7 K/mcL (4.3-11.1)
[2021-04-06 08:57] LABS: Influenza A PCR Negative (Negative); Influenza B PCR Negative (Negative); Resp. Syncytial Virus PCR Negative (Negative); SARS-CoV-2 by PCR (In House) Negative (Negative)
[2021-04-06] MEDS: cloZAPine 100 MG TABLET PO SCH ×2 (10:36→22:03)
[2021-04-06] MEDS: Loratadine 10 MG TABLET PO SCH (10:37)
[2021-04-06] MEDS: Sennosides/Docusate Sodium TABLET PO SCH ×2 (10:37→21:42)
[2021-04-06 13:49] LABS: VBG HCO3 37 mEq/L (21-27); VBG PCO2 63 mmHg (41-51); VBG PH 7.39 pH Units (7.32-7.42); VBG PO2 149 mmHg (25-50)
[2021-04-06] MEDS: Thiamine (B-1) 100 MG in 0.9 % Sodium Chloride 50 ML IVPB SCH (21:30)
[2021-04-06] MEDS: Melatonin 3 MG TABLET PO SCH (21:40)
[2021-04-07] MEDS: Ipratropium 1 PUFF INHALER IH SCH ×4 (02:00→23:29)
[2021-04-07 02:33] LABS: Eosinophils % 2.1 %; Immature Granulocytes % 0.2 % (0-4); Red Cell Distribution Width 15.6 % (11.5-14.5)
[2021-04-07 02:35] LABS: Basophils % 0.3 %; Eosinophils # 0.1 K/mcL (0.0-0.6); Hematocrit 41.9 % (37.5-50.1); Hemoglobin 13.1 g/dL (12.9-16.9); Immature Platelets 19.8 % (1.1-6.1); Lymphocytes # 1.4 K/mcL (0.6-4.6); Lymphocytes % 22.9 %; Mean Corpuscular HGB Conc 31.3 g/dL (31.6-35.5); Mean Corpuscular Hemoglobin 28.8 pg (28.0-33.3); Mean Corpuscular Volume 92.1 fL (83.0-100.0); Mean Platelet Volume 13.4 fL (9.4-12.4); Monocytes # 0.9 K/mcL (0.0-1.3); Monocytes % 14.7 %; Neutrophils # 3.7 K/mcL (1.6-8.9); Platelet Count 110 K/mcL (140-400); Red Blood Count 4.55 M/mcL (4.19-5.50); Segmented Neutrophils % 59.8 %; White Blood Count 6.2 K/mcL (4.3-11.1)
[2021-04-07 02:53] LABS: Alanine Aminotransferase 17 Units/L (7-52); Albumin 3.7 g/dL (3.5-5.7); Albumin/Globulin Ratio 1.3 (1.1-2.2); Alkaline Phosphatase 93 Units/L (34-104); Aspartate Amino Transferase 19 Units/L (13-39); BUN/Creatinine Ratio 20 (6-26); Bilirubin,Total 0.6 mg/dL (0.3-1.0); Blood Urea Nitrogen 13 mg/dL (8-23); Carbon Dioxide 36 mEq/L (23-29); Chloride 98 mEq/L (98-107); Globulin 2.8 g/dL (2.4-3.5); Glucose 97 mg/dL (70-105); Osmolality,Calculated 286 (280-300); Potassium 4.3 mEq/L (3.5-5.1); Sodium 138 mEq/L (136-145); Total Protein 6.5 g/dL (6.4-8.9); eGFR For African Americans > 60 (> 60); eGFR For Non-African Americans > 60 (> 60)
[2021-04-07] MEDS ORDERED: Ringers Solution, Lactated 1,000 ML IVC SCH (08:30)
[2021-04-07] MEDS ORDERED: Ringers Solution, Lactated 500 ML IVC ONE (08:30)
[2021-04-07] MEDS: cloZAPine 100 MG TABLET PO SCH ×2 (09:10→21:16)
[2021-04-07] MEDS: Loratadine 10 MG TABLET PO SCH (09:10)
[2021-04-07] MEDS: Sennosides/Docusate Sodium TABLET PO SCH ×2 (09:10→21:17)
[2021-04-07] MEDS: Thiamine (B-1) 100 MG in 0.9 % Sodium Chloride 50 ML IVPB SCH ×2 (11:11→21:18)
[2021-04-07 11:19] LABS: VBG HCO3 35 mEq/L (21-27); VBG PCO2 60 mmHg (41-51); VBG PH 7.37 pH Units (7.32-7.42); VBG PO2 141 mmHg (25-50)
[2021-04-07] MEDS: Melatonin 3 MG TABLET PO SCH (21:17)
[2021-04-08 05:59] LABS: Basophils % 0.7 %; Hematocrit 41.7 % (37.5-50.1); Hemoglobin 13.2 g/dL (12.9-16.9); Immature Granulocytes % 0.2 % (0-4); Lymphocytes # 1.4 K/mcL (0.6-4.6); Lymphocytes % 25.5 %; Mean Corpuscular HGB Conc 31.7 g/dL (31.6-35.5); Mean Corpuscular Hemoglobin 28.9 pg (28.0-33.3); Mean Corpuscular Volume 91.2 fL (83.0-100.0); Monocytes # 0.9 K/mcL (0.0-1.3); Monocytes % 15.5 %; Neutrophils # 3.2 K/mcL (1.6-8.9); Platelet Count 105 K/mcL (140-400); Red Blood Count 4.57 M/mcL (4.19-5.50); Red Cell Distribution Width 15.5 % (11.5-14.5); Segmented Neutrophils % 58.1 %; White Blood Count 5.5 K/mcL (4.3-11.1)
[2021-04-08 06:16] LABS: Alanine Aminotransferase 22 Units/L (7-52); Albumin 3.6 g/dL (3.5-5.7); Albumin/Globulin Ratio 1.3 (1.1-2.2); Alkaline Phosphatase 89 Units/L (34-104); Aspartate Amino Transferase 28 Units/L (13-39); BUN/Creatinine Ratio 19 (6-26); Bilirubin,Total 0.6 mg/dL (0.3-1.0); Blood Urea Nitrogen 12 mg/dL (8-23); Calcium 9.5 mg/dL (8.6-10.3); Carbon Dioxide 36 mEq/L (23-29); Chloride 96 mEq/L (98-107); Globulin 2.8 g/dL (2.4-3.5); Glucose 86 mg/dL (70-105); Osmolality,Calculated 283 (280-300); Potassium 4.1 mEq/L (3.5-5.1); Sodium 137 mEq/L (136-145); Total Protein 6.4 g/dL (6.4-8.9); eGFR For African Americans > 60 (> 60); eGFR For Non-African Americans > 60 (> 60)
[2021-04-08] MEDS: Ipratropium 1 PUFF INHALER IH SCH ×2 (08:08→15:58)
[2021-04-08] MEDS: Loratadine 10 MG TABLET PO SCH (09:16)
[2021-04-08] MEDS: Sennosides/Docusate Sodium TABLET PO SCH ×2 (09:16→20:14)
[2021-04-08] MEDS: cloZAPine 100 MG TABLET PO SCH ×2 (09:18→20:13)
[2021-04-08] MEDS: Thiamine (B-1) 100 MG in 0.9 % Sodium Chloride 50 ML IVPB SCH ×2 (09:24→20:24)
[2021-04-08] MEDS ORDERED: methylPREDNISolone 125 MG/2 ML VIAL IVP ONE (11:42)
[2021-04-08] MEDS: Furosemide 40 MG/4 ML VIAL IVP SCH (12:27)
[2021-04-08] MEDS: Melatonin 3 MG TABLET PO SCH (20:14)
[2021-04-09] MEDS: Ipratropium 1 PUFF INHALER IH SCH ×4 (00:19→23:57)
[2021-04-09] MEDS: MethylPREDNISolone 40 MG/ML VIAL IVP SCH ×5 (02:14→16:35)
[2021-04-09 02:55] LABS: ABG Base Excess 10 mEq/L (-2 to 3); ABG HCO3 38 mEq/L (21-27); ABG Oxygen Saturation 89 % (95-98); ABG PCO2 67 mmHg (35-45); ABG PH 7.36 pH Units (7.32-7.45); ABG PO2 61 mmHg (85-104); ABG TCO2 40 mEq/L (20-26)
[2021-04-09 05:39] LABS: ABG Base Excess 11 mEq/L (-2 to 3); ABG HCO3 39 mEq/L (21-27); ABG Oxygen Saturation 91 % (95-98); ABG PCO2 65 mmHg (35-45); ABG PH 7.38 pH Units (7.32-7.45); ABG PO2 63 mmHg (85-104); ABG TCO2 41 mEq/L (20-26); Blood Gas Pressure Support 7 cm H2O
[2021-04-09] MEDS: Furosemide 40 MG/4 ML VIAL IVP SCH ×2 (08:26→11:33)
[2021-04-09 09:36] LABS: Basophils % 0.1 %; Hematocrit 44.5 % (37.5-50.1); Hemoglobin 14.6 g/dL (12.9-16.9); Immature Granulocytes % 0.3 % (0-4); Mean Corpuscular HGB Conc 32.8 g/dL (31.6-35.5)
[2021-04-09 09:38] LABS: Immature Platelets 17.5 % (1.1-6.1); Lymphocytes # 0.5 K/mcL (0.6-4.6); Lymphocytes % 5.8 %; Mean Corpuscular Hemoglobin 28.9 pg (28.0-33.3); Mean Corpuscular Volume 88.1 fL (83.0-100.0); Mean Platelet Volume 13.5 fL (9.4-12.4); Monocytes # 0.3 K/mcL (0.0-1.3); Monocytes % 2.9 %; Neutrophils # 8.5 K/mcL (1.6-8.9); Platelet Count 128 K/mcL (140-400); Red Blood Count 5.05 M/mcL (4.19-5.50); Red Cell Distribution Width 14.8 % (11.5-14.5); Segmented Neutrophils % 90.9 %; White Blood Count 9.3 K/mcL (4.3-11.1)
[2021-04-09 09:54] LABS: Alanine Aminotransferase 16 Units/L (7-52); Albumin 4.1 g/dL (3.5-5.7); Albumin/Globulin Ratio 1.2 (1.1-2.2); Alkaline Phosphatase 95 Units/L (34-104); Aspartate Amino Transferase 17 Units/L (13-39); BUN/Creatinine Ratio 41 (6-26); Bilirubin,Total 0.5 mg/dL (0.3-1.0); Blood Urea Nitrogen 35 mg/dL (8-23); Carbon Dioxide 35 mEq/L (23-29); Chloride 93 mEq/L (98-107); Globulin 3.4 g/dL (2.4-3.5); Glucose 128 mg/dL (70-105); Osmolality,Calculated 292 (280-300); Potassium 4.4 mEq/L (3.5-5.1); Sodium 136 mEq/L (136-145); Total Protein 7.5 g/dL (6.4-8.9); eGFR For African Americans > 60 (> 60); eGFR For Non-African Americans > 60 (> 60)
[2021-04-09 10:39] LABS: Adenovirus Not Detected (Not Detect); Bordetella Pertussis Not Detected (Not Detect); Chlamydophila pneumoniae Not Detected (Not Detect); Coronavirus 229E Not Detected (Not Detect); Coronavirus HKU1 Not Detected (Not Detect); Coronavirus NL63 Not Detected (Not Detect); Coronavirus OC43 Not Detected (Not Detect); Human Metapneumovirus Not Detected (Not Detect); Human Rhinovirus/Enterovirus Not Detected (Not Detect); Influenza A Subtype 2009 H1 Not Detected (Not Detect); Influenza B Not Detected (Not Detect); Mycoplasma pneumoniae Not Detected (Not Detect); Parainfluenza Virus 1 Not Detected (Not Detect); Parainfluenza Virus 2 Not Detected (Not Detect); Parainfluenza Virus 3 Not Detected (Not Detect); Parainfluenza Virus 4 Not Detected (Not Detect); Respiratory Syncytial Virus Not Detected (Not Detect); SARS-CoV-2 Not Detected (Not Detect)
[2021-04-09] MEDS ORDERED: Isovue-370 500 ML BOTTLE IVP ONE (11:20)
[2021-04-09] MEDS ORDERED: E-Z-HD (BARIUM SULF) SUSPENSION PO ONE (11:21)
[2021-04-09] MEDS ORDERED: E-Z-PAQUE (BARIUM SULF) SUSP 1 BOTTLE PO ONE (11:21)
[2021-04-09] MEDS: Loratadine 10 MG TABLET PO SCH (11:51)
[2021-04-09] MEDS: cloZAPine 100 MG TABLET PO SCH ×2 (11:52→20:20)
[2021-04-09] MEDS: Sennosides/Docusate Sodium TABLET PO SCH ×2 (11:52→20:21)
[2021-04-09] MEDS: Thiamine (B-1) 100 MG in 0.9 % Sodium Chloride 50 ML IVPB SCH ×2 (12:51→20:23)
[2021-04-09] MEDS: Melatonin 3 MG TABLET PO SCH (20:21)
[2021-04-10 03:32] LABS: Basophils % 0.1 %; Hemoglobin 13.4 g/dL (12.9-16.9)
[2021-04-10 03:34] LABS: Hematocrit 40.4 % (37.5-50.1); Immature Granulocytes % 0.3 % (0-4); Immature Platelets 19.2 % (1.1-6.1); Lymphocytes % 4.2 %; Mean Corpuscular HGB Conc 33.2 g/dL (31.6-35.5); Mean Corpuscular Hemoglobin 29.3 pg (28.0-33.3); Mean Corpuscular Volume 88.2 fL (83.0-100.0); Mean Platelet Volume 13.6 fL (9.4-12.4); Neutrophils # 11.4 K/mcL (1.6-8.9); Platelet Count 132 K/mcL (140-400); Red Blood Count 4.58 M/mcL (4.19-5.50); Red Cell Distribution Width 15.1 % (11.5-14.5); Segmented Neutrophils % 87.4 %
[2021-04-10 03:35] LABS: Lymphocytes # 0.6 K/mcL (0.6-4.6)
[2021-04-10] MEDS: MethylPREDNISolone 40 MG/ML VIAL IVP SCH ×3 (03:59→17:08)
[2021-04-10 04:02] LABS: Alanine Aminotransferase 20 Units/L (7-52); Albumin 3.9 g/dL (3.5-5.7); Albumin/Globulin Ratio 1.3 (1.1-2.2); Alkaline Phosphatase 84 Units/L (34-104); Aspartate Amino Transferase 19 Units/L (13-39); BUN/Creatinine Ratio 49 (6-26); Bilirubin,Total 0.4 mg/dL (0.3-1.0); Blood Urea Nitrogen 36 mg/dL (8-23); Calcium 9.8 mg/dL (8.6-10.3); Carbon Dioxide 37 mEq/L (23-29); Chloride 90 mEq/L (98-107); Globulin 3.1 g/dL (2.4-3.5); Glucose 124 mg/dL (70-105); Osmolality,Calculated 288 (280-300); Potassium 4.3 mEq/L (3.5-5.1); Sodium 134 mEq/L (136-145); eGFR For African Americans > 60 (> 60); eGFR For Non-African Americans > 60 (> 60)
[2021-04-10] MEDS: Ipratropium 1 PUFF INHALER IH SCH ×3 (07:31→20:53)
[2021-04-10] MEDS: Furosemide 40 MG/4 ML VIAL IVP SCH (10:18)
[2021-04-10] MEDS: Sennosides/Docusate Sodium TABLET PO SCH ×2 (10:18→19:58)
[2021-04-10] MEDS: cloZAPine 100 MG TABLET PO SCH ×2 (10:18→19:57)
[2021-04-10] MEDS: Loratadine 10 MG TABLET PO SCH (10:18)
[2021-04-10] MEDS: Thiamine (B-1) 100 MG in 0.9 % Sodium Chloride 50 ML IVPB SCH ×2 (10:38→20:51)
[2021-04-10] MEDS: Melatonin 3 MG TABLET PO SCH (19:58)
[2021-04-11 01:18] LABS: Lymphocytes % 4.8 %; Red Blood Count 4.52 M/mcL (4.19-5.50)
[2021-04-11 01:21] LABS: Basophils % 0.1 %; Hematocrit 40.3 % (37.5-50.1); Immature Granulocytes % 0.3 % (0-4); Immature Platelets 20.4 % (1.1-6.1); Lymphocytes # 0.6 K/mcL (0.6-4.6); Mean Corpuscular HGB Conc 32.3 g/dL (31.6-35.5); Mean Corpuscular Hemoglobin 28.8 pg (28.0-33.3); Mean Corpuscular Volume 89.2 fL (83.0-100.0); Mean Platelet Volume 13.3 fL (9.4-12.4); Monocytes # 0.5 K/mcL (0.0-1.3); Monocytes % 4.3 %; Neutrophils # 10.9 K/mcL (1.6-8.9); Platelet Count 104 K/mcL (140-400); Red Cell Distribution Width 14.9 % (11.5-14.5); Segmented Neutrophils % 90.5 %
[2021-04-11 01:35] LABS: Alanine Aminotransferase 19 Units/L (7-52); Albumin 3.9 g/dL (3.5-5.7); Albumin/Globulin Ratio 1.3 (1.1-2.2); Alkaline Phosphatase 77 Units/L (34-104); Aspartate Amino Transferase 20 Units/L (13-39); BUN/Creatinine Ratio 47 (6-26); Bilirubin,Total 0.3 mg/dL (0.3-1.0); Blood Urea Nitrogen 33 mg/dL (8-23); Calcium 9.4 mg/dL (8.6-10.3); Carbon Dioxide 35 mEq/L (23-29); Chloride 92 mEq/L (98-107); Glucose 120 mg/dL (70-105); Osmolality,Calculated 292 (280-300); Potassium 4.3 mEq/L (3.5-5.1); Sodium 137 mEq/L (136-145); Total Protein 6.9 g/dL (6.4-8.9); eGFR For African Americans > 60 (> 60); eGFR For Non-African Americans > 60 (> 60)
[2021-04-11] MEDS: MethylPREDNISolone 40 MG/ML VIAL IVP SCH ×3 (02:19→16:50)
[2021-04-11 03:09] LABS: Platelet Estimate Decreased (Normal)
[2021-04-11] MEDS: Ipratropium 1 PUFF INHALER IH SCH ×2 (07:56→15:42)
[2021-04-11] MEDS: Furosemide 40 MG/4 ML VIAL IVP SCH (08:48)
[2021-04-11] MEDS: Sennosides/Docusate Sodium TABLET PO SCH (08:49)
[2021-04-11] MEDS: Loratadine 10 MG TABLET PO SCH (08:49)
[2021-04-11] MEDS: cloZAPine 100 MG TABLET PO SCH (08:49)
[2021-04-11] MEDS: Thiamine (B-1) 100 MG in 0.9 % Sodium Chloride 50 ML IVPB SCH (10:03)
[2021-04-11 14:26] VITALS: BP 133/81; PULSE 72; TEMP 97.8
[2021-04-11 16:54] VITALS: O2SAT 92
== END 2021-04-11 17:01 | disposition home or self-care (01) | DRG 312 ==
LOC: EMEROOARM 13:08 → 3BNU 13:08 → SUATTDRO 04-08 14:58
PROVIDERS: ADMIT General Practice; ATTEND Registered Nurse